=== PATIENT | female | born 2000 | race Caucasian/White ===

== ENCOUNTER 2022-10-28 15:41 | Emergency (ER) | payer OTHER, SELFPAY ==
[2022-10-28 16:29] VITALS: BP 151/86; PULSE 95; RESP 16; TEMP 36.5; O2SAT 100
[2022-10-28 17:07] LABS: Appearance Urine Cloudy (Clear); Bacteria Urine Rare /hpf; Bilirubin Urine Negative (Negative); Blood Urine Negative (Negative); Color Urine Yellow (Yellow); Glucose Urine UA Negative (Negative); Ketones Urine Trace mg/dL (Negative); Leukocyte Esterase Ur Negative LEU/UL (Negative); Nitrate Urine Negative (Negative); Non Pathogenic Casts 0-2; Protein Urine Negative (Negative); RBC Urine 0-2 /hpf (0-2); Specific Grav Ur 1.019 (1.001-1.035); Squamous Epithelial Cell Urine Moderate /hpf (Few); Urobilinogen Urine 0.2 mg/dL (<2.0); WBC Urine 0-5 /hpf; pH Urine 6.5 (5.0-9.0)
[2022-10-28 17:12] LABS: Add Urine Microscopic? YES
--- NOTE | 2022-10-28 19:59 | ED.GENADULT ---
HPI - General Adult General Chief complaint: Abdominal Pain Stated complaint: abd pain Time Seen by Provider: 10/28/22 19:17 History of Present Illness HPI narrative: This is a 22-year-old female presenting ED with a chief complaint of left upper quadrant abdominal pain. It occurs started occurring about 3 weeks ago. It is a burning pain that is nonradiating, 6 out 10 in intensity and comes and goes. She says she has never experienced pain like this before. It is worse after eating. There are no alleviating factors. Patient notes that she has been taking increased Motrin to kind to help with the pain. She also drinks a large amount of coffee and eats a lot of spicy food. Patient denies fever, chills vomiting. She does have chronic constipation. She also has bad heartburn. Related Data Allergies Allergy/AdvReac Type Severity Reaction Status Date / Time No Known Allergies Allergy Verified 10/28/22 20:04 [facility] Past Medical History Medical History Constipation GERD (gastroesophageal reflux disease) Social History Social History Social History: Patient drinks alcohol occasionally, denies tobacco or drug use. Exam Narrative: APPEARANCE: No apparent distress. Head: atraumatic. EYES: EOMI, NOSE: Atraumatic NECK: Trachea midline RESPIRATORY: No increased rate of breathing Clear auscultation bilaterally CARDIOVASCULAR: RRR, ABDOMINAL: Tenderness palpation in the left upper quadrant. No guarding no rebound bowel sounds present. MUSCULOSKELETAl: No obvious deformities NEURO: Alert. Moving 4/4 extremities SKIN:: Warm, dry. Normal color PSYCHIATRIC: Normal affect Course Vital Signs Vital signs: Vital Signs Temperature 97.7 F 10/28/22 16:29 Pulse Rate 95 10/28/22 16:29 Respiratory Rate 16 10/28/22 16:29 Blood Pressure 151/86 H 10/28/22 16:29 Pulse Oximetry 100 10/28/22 16:29 Oxygen Delivery Room Air 10/28/22 16:29 Temperature 97.7 F 10/28/22 16:29 Pulse Rate 95 10/28/22 16:29 Respiratory Rate 16 10/28/22 16:29 Blood Pressure 151/86 H 10/28/22 16:29 Pulse Oximetry 100 10/28/22 16:29 Oxygen Delivery Room Air 10/28/22 16:29 Medical Decision Making MDM Narrative Medical decision making narrative: -Presentation: 22-year-old female presenting with left upper quadrant pain. History of heavy Motrin coffee and spicy food use. -DDX includes but is not limited to: Gastritis/peptic ulcer disease, GERD, UTI/pyelonephritis, pancreatitis -Co-morbidities complicating care: GERD, constipation -Social determinants of health: patient works at [employer], she has part-time student lives with her Betzaida -External Chart Review: none -Hx from independent Sources: mother Shantelle -Discussion of Management/Consultants: none -Independent interpretation of studies: Urine was not indicative infection. Lab work is within normal limits. Dx tests considered but not ordered: CT abdomen pelvis, patient's history and physical are consistent with gastritis. given the patient's young age and classic presentation a CT will be deferred at this time. -Procedures: none -Interventions: Pepcid, Maalox -Shared decision making / Disposition: the results were discussed with the patient and her family. Her presentation is consistent with gastritis. She will be trialed on a 6 week course of Pepcid. She has been given instructions to reduce coffee, Motrin and spicy food intake. She can follow up with her primary care physician 1-2 weeks. -RX Pepcid Vital Signs Vital Signs: Vital Signs Temperature 97.7 F 10/28/22 16:29 Pulse Rate 95 10/28/22 16:29 Respiratory Rate 16 10/28/22 16:29 Blood Pressure 151/86 H 10/28/22 16:29 Pulse Oximetry 100 10/28/22 16:29 Oxygen Delivery Room Air 10/28/22 16:29 Temperature 97.7 F 10/28/22 16:29 P
[2022-10-28] MEDS: MAG HYDROX/AL HYDROX/SIMETH 30 ML UDC PO (20:47)
[2022-10-28] MEDS: Please add drug allergy info to patient profile. 1 EACH XX (20:47)
[2022-10-28] MEDS: FAMOTIDINE 20 MG TABLET PO (20:47)
[2022-10-28 20:48] LABS: Basophils Absolute Auto 0.1 K/mm3 (0.0-0.1); Basophils Percent Auto 0.7 % (0.2-1.2); Eosinophils Percent Auto 0.1 % (0-4.4); Hematocrit 43.2 % (37.0-47.0); Hemoglobin 14.1 g/dL (12.0-15.0); Immature Granulocyte Absolute 0.02 K/mm3 (0.00-0.031); Immature Granulocyte Percent A 0.2 % (0-0.5); Lymphocytes Absolute Auto 1.52 K/mm3 (0.9-3.2); Lymphocytes Percent Auto 15.4 % (18.3-44.2); Mean Corpuscular HGB Conc 32.6 g/dl (32-36); Mean Corpuscular Hemoglobin 28.5 pg (26-34); Mean Corpuscular Volume 87.3 fl (80-100); Mean Platelet Volume 10.3 fl (7.4-10.4); Monocytes Absolute Auto 0.4 K/mm3 (0.1-0.6); Monocytes Percent Auto 4.1 % (2.6-8.5); Neutrophils Absolute Auto 7.9 K/mm3 (1.3-6.7); Neutrophils Percent Auto 79.5 % (45.5-73.1); Platelet Count Result 341 k/mm3 (150-375); Red Blood Count 4.95 M/mm3 (4.2-5.4); Red Cell Distribution Width 12.8 % (11.5-14.5); White Blood Count 9.9 K/mm3 (4.5-10.0)
[2022-10-28 21:00] LABS: Alanine Aminotransferase 37 U/L (6-35); Albumin Level 4.8 g/dL (3.5-5.1); Alkaline Phosphatase 120 U/L (38-126); Anion Gap 6 mmol/L (8-16); Aspartate Amino Transferase 30 U/L (14-36); Bilirubin,Total 0.5 mg/dL (0.2-1.3); Blood Urea Nitrogen 15 mg/dL (7-17); Calcium 9.7 mg/dL (8.4-10.2); Carbon Dioxide 26 mmol/L (22-30); Chloride 102 mmol/L (98-107); Estimated CRCL calculation 137 ml/min; Estimated Glomerular Filt Rate > 60; Glucose 100 mg/dL (65-110); Lipase 124 U/L (23-300); Sodium 134 mmol/L (137-145)
[2022-10-28 21:27] VITALS: BP 146/89; PULSE 78; RESP 18; O2SAT 97
== END 2022-10-28 21:28 | disposition home or self-care (01) ==
PROVIDERS: Emergency Medicine; Emergency Provider Emergency Medicine; PCP Family Medicine
DX: K29.70 Gastritis, unspecified, without bleeding (principal); K21.9 Gastro-esophageal reflux disease without esophagitis
CPT/HCPCS: 36415; 80053; 81001; 81025; 83690; 85025; 96374; 99284; A9270

== ENCOUNTER 2022-12-23 00:56 | Emergency (ER) | payer OTHER, SELFPAY ==
[2022-12-23 01:01] VITALS: BP 139/86; PULSE 90; RESP 18; TEMP 36.6; O2SAT 100
[2022-12-23] MEDS: ONDANSETRON HCL ODT 4 MG TABLET PO (02:35)
[2022-12-23] MEDS: CARBAMIDE PEROXIDE 6.5% OT SOLN 15 ML BTL 5 DROP RIGHT EAR (02:35)
[2022-12-23] MEDS: MECLIZINE HCL 25 MG TABLET PO (02:35)
--- NOTE | 2022-12-23 02:42 | ED.GENADULT ---
HPI - General Adult General Chief complaint: Unspecified <ALETHEA Woods Last Filed: 12/23/22 03:05> Stated complaint: ear wax in ear and caused dizziness <ALETHEA Woods Last Filed: 12/23/22 03:05> Time Seen by Provider: 12/23/22 02:13 <ALETHEA Woods Last Filed: 12/23/22 03:05> History of Present Illness HPI narrative: 22-year-old female here for evaluation of right ear fullness x1 day. Patient states he attempted to remove earwax but she pushed it in further and this caused her to be nauseated and dizzy. <ALETHEA Woods Last Filed: 12/23/22 03:05> Related Data Allergies/adverse reactions: Allergies Allergy/AdvReac Type Severity Reaction Status Date / Time No Known Allergies Allergy Verified 12/23/22 02:47 <Kandice Ventura PA-C - Last Filed: 12/23/22 03:05> Review of Systems Review of Systems: Gen: Denies fevers or chills Eyes: Denies eye pain or visual change ENT: Denies congestion Respiratory: Denies shortness of breath or cough CV: Denies chest pain or palpitations GI: Denies abdominal pain nausea, emesis or diarrhea : denies burning, urgency, frequency or hematuria Musculoskeletal: Denies back pain or muscle pain Neuro: Denies numbness, tingling, weakness or focal weakness Skin: Denies rash Except as documented, all other systems reviewed and negative <ALETHEA Woods Last Filed: 12/23/22 03:05> [facility] Past Medical History Medical History: Medical History Constipation GERD (gastroesophageal reflux disease) <ALETHEA Woods Last Filed: 12/23/22 03:05> Social History Social History: Social History (System 11/01/22 @ 08:03 by Heather Momin) Social History: Patient drinks alcohol occasionally, denies tobacco or drug use. <Kandice Ventura PA-C - Last Filed: 12/23/22 03:05> Exam Narrative: 22-year-old female here for evaluation of dizziness and nausea in the setting of a right cerumen impaction that was irrigated out in the ED. Patient feeling improved after irrigation. Will discharge home. <Kandice Ventura PA-C - Last Filed: 12/23/22 03:05> Course TIME STUDY ANALYST/PA Physician Supervision This is a was performed by both a physician and an APC. I performed all aspects of the MDM as documented w/ the following additions: 22-year-old female presenting with cerumen impaction. Ear wax was removed with improvement symptoms. He components of procedures performed my supervision. All questions answered. Patient in agreement w/ disposition. <Aki Lopez MD - Last Filed: 12/29/22 02:25> Vital Signs Vital signs: Vital Signs Temperature 97.9 F 12/23/22 01:01 Pulse Rate 90 12/23/22 01:01 Respiratory Rate 18 12/23/22 01:01 Blood Pressure 139/86 12/23/22 01:01 Pulse Oximetry 100 12/23/22 01:01 Oxygen Delivery Room Air 12/23/22 01:01 Temperature 97.9 F 12/23/22 01:01 Pulse Rate 90 12/23/22 01:01 Respiratory Rate 18 12/23/22 01:01 Blood Pressure 139/86 12/23/22 01:01 Pulse Oximetry 100 12/23/22 01:01 Oxygen Delivery Room Air 12/23/22 01:01 <Kandice Ventura PA-C - Last Filed: 12/23/22 03:05> Vital Signs Temperature 97.9 F 12/23/22 01:01 Pulse Rate 90 12/23/22 01:01 Respiratory Rate 18 12/23/22 01:01 Blood Pressure 139/86 12/23/22 01:01 Pulse Oximetry 100 12/23/22 01:01 Oxygen Delivery Room Air 12/23/22 01:01 Temperature 97.9 F 12/23/22 01:01 Pulse Rate 90 12/23/22 01:01 Respiratory Rate 18 12/23/22 01:01 Blood Pressure 139/86 12/23/22 01:01 Pulse Oximetry 100 12/23/22 01:01 Oxygen Delivery Room Air 12/23/22 01:01 <Aki Lopez MD - Last Filed: 12/29/22 02:25> Procedures Ear Wax Removal Right Ear: Ear Wax Removal Date: 12/23/22 <ROYCE Woods-
== END 2022-12-23 03:11 | disposition home or self-care (01) ==
PROVIDERS: Emergency Provider Physician Assistant; PCP Family Medicine
DX: H61.21 Impacted cerumen, right ear (principal)
CPT/HCPCS: 69209; 99283; A9270

== ENCOUNTER 2023-11-25 04:08 | Emergency (ER) | payer OTHER, SELFPAY ==
[2023-11-25 04:09] VITALS: BP 144/76; PULSE 83; RESP 18; TEMP 36.3; O2SAT 100
[2023-11-25 05:07] LABS: Basophils Percent Auto 0.3 % (0.2-1.2); Eosinophils Percent Auto 0.1 % (0-4.4); Hematocrit 44.4 % (37.0-47.0); Hemoglobin 14.6 g/dL (12.0-15.0); Immature Granulocyte Absolute 0.07 K/mm3 (0.00-0.031); Immature Granulocyte Percent A 0.5 % (0-0.5); Lymphocytes Absolute Auto 0.62 K/mm3 (0.9-3.2); Lymphocytes Percent Auto 4.7 % (18.3-44.2); Mean Corpuscular HGB Conc 32.9 g/dl (32-36); Mean Corpuscular Volume 85.1 fl (80-100); Mean Platelet Volume 11.2 fl (7.4-10.4); Monocytes Absolute Auto 0.6 K/mm3 (0.1-0.6); Monocytes Percent Auto 4.2 % (2.6-8.5); Neutrophils Absolute Auto 11.9 K/mm3 (1.3-6.7); Neutrophils Percent Auto 90.2 % (45.5-73.1); Platelet Count Result 292 k/mm3 (150-375); Red Blood Count 5.22 M/mm3 (4.2-5.4); Red Cell Distribution Width 12.9 % (11.5-14.5); White Blood Count 13.2 K/mm3 (4.5-10.0)
[2023-11-25 05:11] LABS: Alanine Aminotransferase 22 U/L (6-35); Alkaline Phosphatase 104 U/L (38-126); Anion Gap 9 mmol/L (4-12); Aspartate Amino Transferase 31 U/L (14-36); Blood Urea Nitrogen 15 mg/dL (7-17); Calcium 9.8 mg/dL (8.4-10.2); Carbon Dioxide 24 mmol/L (22-30); Chloride 105 mmol/L (98-107); Estimated CRCL calculation 219 ml/min; Estimated Glomerular Filt Rate > 60; Glucose 110 mg/dL (65-110); Lipase 130 U/L (23-300); Potassium 4.1 mmol/L (3.4-5.0); Sodium 138 mmol/L (137-145)
[2023-11-25] MEDS: LORazepam INJ (*CRX) 2 MG/ML VIAL 0.5 MG IV PUSH (05:12)
[2023-11-25] MEDS: ONDANSETRON INJ 4 MG/2 ML VIAL IV PUSH (05:13)
--- NOTE | 2023-11-25 05:45 | ED.GENADULT ---
HPI - General Adult General Chief complaint: Nausea/Vomiting/Diarrhea Stated complaint: vomiting/chills Time Seen by Provider: 11/25/23 04:48 History of Present Illness HPI narrative: This is a 23-year-old female presenting with vomiting x1 week. Patient states that she has been having trouble sleeping for the last month. Over the last week when she has trouble sleeping she starts to feel her heart racing and then starts to vomit. She has had some chills related to the vomiting but no fevers. Some abdominal discomfort while vomiting but no true pain. No urinary symptoms. Patient does have significant anxiety about her health as her was recently diagnosed with type 2 diabetes she is concerned she may also have diabetes. Related Data Allergies Allergy/AdvReac Type Severity Reaction Status Date / Time No Known Allergies Allergy Verified 12/23/22 02:47 [facility] Past Medical History Medical History Constipation GERD (gastroesophageal reflux disease) Social History Social History (System 11/01/22 @ 08:03 by Heather Momin) Social History: Patient drinks alcohol occasionally, denies tobacco or drug use. Exam Narrative: APPEARANCE: anxious appearing Head: atraumatic. EYES: EOMI, NOSE: Atraumatic NECK: Trachea midline RESPIRATORY: No increased rate of breathing CTAB CARDIOVASCULAR: RRR, ABDOMINAL: Abdomen is soft nontender no guarding or rebound MUSCULOSKELETAl: No obvious deformities NEURO: Alert. Moving 4/4 extremities SKIN:: Warm, dry. Normal color PSYCHIATRIC: Normal affect Course Vital Signs Vital signs: Vital Signs Temperature 97.3 F L 11/25/23 04:09 Pulse Rate 83 11/25/23 04:09 Respiratory Rate 18 11/25/23 04:09 Blood Pressure 144/76 H 11/25/23 04:09 Pulse Oximetry 100 11/25/23 04:09 Oxygen Delivery Room Air 11/25/23 04:09 Temperature 97.3 F L 11/25/23 04:09 Pulse Rate 83 11/25/23 04:09 Respiratory Rate 18 11/25/23 04:09 Blood Pressure 144/76 H 11/25/23 04:09 Pulse Oximetry 100 11/25/23 04:09 Oxygen Delivery Room Air 11/25/23 04:09 Medical Decision Making [facility] Narrative Medical decision making narrative: -Course: 23-year-old female presenting with insomnia and nausea/vomiting. Patient notes a significant increased anxiety over the last month due to health school. Patient given Zofran and Ativan. Workup negative. On re-evaluation the patient is tolerating p.o.. She says she feels much better. Patient encouraged to follow-up with her primary care physician for treatment of her anxiety. She will be given Zofran for nausea. Given return precautions. 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 CMP within normal limits. Urine not indicative infection. -Dx tests considered but not ordered: CT abdomen pelvis-benign abdominal exam -Interventions: Zofran 4mg, Ativan .5mg -Shared decision making / Disposition: discharge -RX Zofran Vital Signs Vital Signs: Vital Signs Temperature 97.3 F L 11/25/23 04:09 Pulse Rate 83 11/25/23 04:09 Respiratory Rate 18 11/25/23 04:09 Blood Pressure 144/76 H 11/25/23 04:09 Pulse Oximetry 100 11/25/23 04:09 Oxygen Delivery Room Air 11/25/23 04:09 Temperature 97.3 F L 11/25/23 04:09 Pulse Rate 83 11/25/23 04:09 Respiratory Rate 18 11/25/23 04:09 Blood Pressure 144/76 H 11/25/23 04:09 Pulse Oximetry 100 11/25/23 04:09 Oxygen Delivery Room Air 11/25/23 04:09 Lab Data 11/25/23 04:52 11/25/23 04:52 Labs: Lab Results 11/25/23 11/25/23
[2023-11-25 05:46] LABS: Appearance Urine Clear (Clear); Bacteria Urine None Seen /hpf; Bilirubin Urine Negative (Negative); Blood Urine Negative (Negative); Color Urine Yellow (Yellow); Glucose Urine UA Negative (Negative); Ketones Urine Trace mg/dL (Negative); Leukocyte Esterase Ur Negative LEU/UL (Negative); Nitrate Urine Negative (Negative); Non Pathogenic Casts 0-2; Protein Urine Trace mg/dL (Negative); RBC Urine 0-2 /hpf (0-2); Specific Grav Ur 1.027 (1.001-1.035); Squamous Epithelial Cell Urine Occasional /hpf (Few); WBC Urine 0-5 /hpf (0-3); pH Urine 8.5 (5.0-9.0)
[2023-11-25 05:47] LABS: Add Urine Microscopic? YES
[2023-11-25 05:57] LABS: Amphetamine Screen Urine Negative (Negative); Barbiturate Screen Urine Negative (Negative); Benzodiazepines Screen Urine Negative (Negative); Cannabinoid Screen Urine Negative (Negative); Cocaine Screen Urine Negative (Negative); Methadone Screen Urine Negative (Negative); Opiate Screen Urine Negative (Negative); Phencyclidine Screen Urine Negative (Negative)
[2023-11-25 06:17] LABS: Influenza A QL RT-PCR Negative (Negative); Influenza B QL RT-PCR Negative (Negative); RSV RNA, RT-PCR Negative (Negative); SARS-CoV-2 RNA PCR Negative (Negative)
[2023-11-25 06:35] VITALS: BP 122/73; PULSE 99; RESP 15; O2SAT 100
== END 2023-11-25 06:38 | disposition home or self-care (01) ==
PROVIDERS: Emergency Provider Emergency Medicine; PCP Family Medicine
DX: R11.2 Nausea with vomiting, unspecified (principal); F41.9 Anxiety disorder, unspecified; K21.9 Gastro-esophageal reflux disease without esophagitis; Z20.822 Contact with and (suspected) exposure to COVID-19
CPT/HCPCS: 36415; 80053; 80307; 81001; 81025; 83690; 85025; 87637; 96374; 96375; 99284; J2060; J2405

== ENCOUNTER 2024-11-03 07:43 | Emergency (ER) | payer BC, SELFPAY ==
--- OUTSIDE RECORDS SUMMARY | 2024-11-03 07:46 | XMS_ITS | Data Portability ---
Author Organization [facility] Pricing Assistant, Main Office Address [address] [place] [address] Care Team Providers Care Process Controller Name Role Phone ROBYN WITT Primary Care Provider Assessment No assessment recorded. Plan of Treatment Reminders Order Date Submit Date Provider Last Modified By Organization Details Last Modified Time Details Appointments None recorded. Lab lipid panel, serum 2023 024 [facility] (Lab), [address] [place], [address], 4 17:26:44 CMP, serum or plasma 2023 024 [facility] (Lab), [address] [place], [address], 4 17:26:44 CBC w/ auto diff 2023 024 [facility] (Lab), [address] [place], [address], 4 11:45:05 glycohemo globin, total, blood 2023 024 [facility] (Lab), [address] [place], [address], 4 14:53:29 TSH, serum or plasma 2023 024 [facility] (Lab), [address] [place], [address], 4 17:26:45 T4, free, serum 2023 024 [facility] (Lab), [address] [place], [address], 4 17:26:44 vitamin D, 25-hydrox y, total, serum 2023 024 [facility] (Lab), [address] [place], [address], 4 17:26:44 Referral endocrino logy referral 2023 024 [email or web address] [facility], [address], [address], [place], [address], 5 07:28:33 obstetric larissa and gynecolog ist referral 2023 024 [email or web address] [place], [address], [place], [address], 5 07:28:32 Procedures None recorded. Surgeries None recorded. Imaging None recorded. Medication Orders Ciprodex 0.3 %-0.1 % ear drops,gavin pension 2023 024 [email or web address] [id number], [address], [place], [place], [id number], 5 09:44:19 Patient TargetsNo targets recorded. Patient Instructions Encounter Date Encounter Id Patient Instructions Last Modified By Organization Details Last Modified Time 02/08/2024 [id number] Follow up in 4 m [facility] Obtain labs Referral to VINYL INSTALLER Referral to Endocrinology [email or web address] Not available 02/08/2024 09:30:26 07/24/2024 [id number] SHE WAS ADVISED TO CONTINUE AUGMENTIN AND METHYLPREDNISOLONE THAT WAS PREVIOUSLY PRESCRIBED. ADDED CIPRODEX TWICE A DAY FOR 7 DAYS FOR ADDITIONAL MANAGEMENT. SHE WILL FOLLOW-UP WITH ME IN 6 WEEKS TO ASSESS THE HEALING PROGRESS OF HER RIGHT TM PERFORATION. AT THAT TIME OF HER NEXT APPOINTMENT WE WILL SCHEDULE FOR AN AUDIOGRAM AND TYMPANOGRAM TO BE COMPLETED. [email or web address] Not available 07/24/2024 16:17:25 Reason for Referral Senior Backup Administrator And Gynecologis t Referral for Long-term current use of hormonal contraceptive Referring Physician: Robyn Witt, Internal Medicine, Encounter Date: 02/08/2024 Endocrinology Referral for Dominguez gilliland Referring Physician: Robyn Witt Internal Medicine, Encounter Date: 02/08/2024 Results Created Date Observation Date Name Description Value Unit Range Abnormal Flag Note LastModifiedBy Organization Detail LastModifiedTime 03/07/20 24 03/07/2024 PPD (ted fied prote in deriv ative ), skin test TB negati ve Not Available [facility] [address], [place], [address], 03/05/2024 09:29:31 03/07/20 24 03/07/2024 PPD (tde fied prote in deriv ative ), skin test TB 0mm Not Available [facility] [address], [place], [address], 03/05/2024 09:29:31 Result Notes None recorded. Problems Name Problem SNOMED Code Status Onset Date Resolution Date Notes Provider Name and Address Organization Details Recorded Time Abnormal testosteron e 452150247 Active 2021 Robyn Witt APRN [address], [address], [place], [address], [employer] 4 07:47:59 Vitamin D deficiency 70425353 Active 2021 Robyn Witt APRN [address], [place], [address], [employer] 4 07:48:23 Obesity 450543804 Active 2021 Robyn Witt APRN [address], [place], [address], [employer] 4 07:48:19 Anxiety 19844953 Active 2019 Robyn Witt APRN [address], [place], [address], [employer] [place] [facility] [employer] 4 07:47:56 Chronic constipatio n 112277227 Active 2022 Robyn Witt APRN [address], [place], [address], [employer] [place] [employer] 4 07:48:06 Mixed anxiety and depressive disorder 185961515 Active 2022 Robyn Witt APRN [address], [address], [place], [address], [employer] 4 07:48:16 Testosteron e level above reference range 889558461 Active 2022 ABEL Soriano [address], [address], [place], [address], [employer] 3 09:37:30 Irregular periods 06912812 Active 2022 Radha Grande MD [address], [address], [place], [address], [employer] 3 09:26:49 Fatigue 85551301 Active 2022 Radha Grande MD [address], [address], [place], [address], [employer] 3 09:27:36 Abdominal bloating 738989021 Active 2022 Radha Grande MD [address], [address], [place], [address], [employer] [place] [employer] 3 09:29:00 Abdominal pain 64503788 Active 2022 Radha Grande MD [address], [address], [place], [address], [employer] [place] [employer] 3 09:32:20 Goiter 2164799 Active 2022 Robyn Witt APRN [address], [place], [address], [facility] [employer] [facility] [employer] [facility] 4 07:48:13 Chronic abdominal pain 430866206 Active 2022 Robyn Witt APRN [address], [place], [address], [facility] [employer] [facility] 4 07:48:03 Headache 56261596 Active 2022 ABEL Soriano [address], [place], [address], [facility] [employer] [facility] [employer] [facility] 3 12:51:21 Acute otitis media 0281344 Active 2023 Robyn Witt APRN [address], [place], [address], [facility] [employer] [facility] [employer] [facility] 4 11:56:46 Perforation of right tympanic membrane 7039738916191 108 Active 2023 ABEL Shirley [address], [place], [address], [facility] [employer] [facility] [employer] [facility] 4 16:16:01 Problem Notes None recorded. Procedures Surgical History Date Name Laterality Status Provider Name and Address Organization Details Recorded Time Myringotomy Tube Placement completed Autumn Delgado RN [facility] [employer] [facility] 07/24/2024 15:39:09 Imaging Results None recorded. Procedure Notes None recorded. Medical Equipment None Reported. Allergies No known drug allergies Medications Name Sig Start Date Stop Date Status Note LastModified by Organization Details LastModified Time tuberculin PPD 5 tub. unit/0.1 mL intradermal injection solution Inject 0.1 mL every day by intraderm al route for 1 day. 07/24 completed Not Available Not Available Not Available cefprozil 500 mg tablet 05/22 completed Not Available Not Available Not Available cetirizine 10 mg tablet TAKE 1 TABLET BY MOUTH EVERY NIGHT active Not Available Not Available No t Available citalopram 10 mg tablet Take 05/15 completed Not Available Not Available Not Available Zithromax Z-Marcello 250 mg tablet TAKE 2 TABLETS (500 MG) BY ORAL ROUTE ONCE DAILY FOR 1 DAY THEN 1 TABLET (250 MG) BY ORAL ROUTE ONCE DAILY FOR 4 DAYS 04/05 completed Not Available Not Available Not Available penicillin V potassium 500 mg tablet 05/15 completed Not Available Not Available Not Available pantoprazol e 20 mg tablet,tim yed release 06/29 completed Not Available Not Available Not Available ofloxacin 0.3 % ear drops USE 10 DROPS IN THE RIGHT EAR EVERY DAY 02/07 completed Not Available Not Available Not Available amoxicillin 875 mg tablet TAKE 1 TABLET BY MOUTH EVERY 12 HOURS FOR 7 DAYS 07/24 completed Not Available Not Available Not Available citalopram 20 mg tablet TAKE 1 TABLET BY MOUTH DAILY 02/07 completed Not Available Not Available Not Available oseltamivir 75 mg capsule 05/22 completed Not Available Not Available Not Available buspirone 10 mg tablet Take 1 tablet twice a day by oral route for 30 days. 03/10 completed Not Available Not Available Not Available ergocalcife rol (vitamin D2) 1,250 mcg (50,000 unit) capsule Take 1 capsule every week by oral route in the morning for 90 days. 02/07 completed Not Available Not Available Not Available methylpredn isolone 4 mg tablets in a dose pack FOLLOW PACKAGE DIRECTION S 09/04 completed Not Available Not Available Not Available hydroxyzine HCl 10 mg tablet TAKE 1 TABLET BY MOUTH THREE TIMES DAILY NEEDED active Not Available Not Available No t Available ondansetron 4 mg disintegrat ing tablet DISSOLVE 1 TABLET ON THE TONGUE EVERY 8 HOURS NEEDED FOR NAUSEA OR VOMITING 02/07 completed Not Available Not Available Not Available fluticasone propionate 50 mcg/actuati on nasal spray,suspe nsion SPRAY 1 SPRAY INTO EACH NOSTRIL EVERY 12 HOURS NEEDED FOR CONGESTIO N active Not Available Not Available No t Available medroxyprog esterone 150 mg/mL intramuscul ar suspension ADM 1 ML IM 1 TIME FOR 1 DOSE 05/15 completed Not Available Not Available Not Available loratadine 10 mg tablet 11/09 completed Not Available Not Available Not Available amoxicillin 875 mg-potassiu m clavulanate 125 mg tablet TAKE 1 TABLET BY MOUTH TWICE DAILY 09/04 completed Not Available Not Available Not Available ciprofloxac in 0.3 %-dexametha sone 0.1 % ear drops,suspe nsion INSTILL 4 DROPS INTO RIGHT EAR(S) BY OTIC ROUTE 2 TIMES PER DAY FOR 7 DAYS 09/04 completed Not Available Not Available Not Available Wellbutrin XL 150 mg 24 hr tablet, extended release Take 1 tablet every day by oral route 2023 active Not Available Not Available Not Avai lable Wellbutrin XL 300 mg 24 hr tablet, extended release Take 1 tablet every day by oral route for 90 days. 04/05 completed Not Available Not Available Not Available nitrofurant oin monohydrate /macrocryst als 100 mg capsule TAKE 1 CAPSULE BY MOUTH EVERY 12 HOURS FOR 5 DAYS 03/10 completed Not Available Not Available Not Available Nexplanon 68 mg subdermal implant Inject by subcutane ous route. 07/24 completed Not Available Not Available Not Available Linzess 290 mcg capsule Take 1 capsule every day by oral route. 02/07 completed Not Available Not Available Not Available Plenvu 140 gram-9 gram-5.2 gram powder packs USE DIRECTED WITH FIRST DOSE AT 6 PM NIGHT BEFORE PROCEDURE AND SECOND DOSE 6 HOURS PRIOR TO PROCEDURE 02/07 completed Not Available Not Available Not Available Vitals Date Recorded Body height Provider Name an d Address Organization Details Last Updated DateTime 03/08/2023 162.56 cm Laurie Winslow LPN [place] [employer] 03/08/2023 11:16:09 Date Recorded Body height Body mass index (BMI) Body weight Body temperature Heart rate Oxygen saturation Oxygen saturation in Arterial blood by Pulse oximetry Systolic blood pressure Diastolic blood pressure Provider Name and Address Organization Details Last Updated DateTime 162.56 cm 44.3 kg/m2 637766. 83 g 97.4 [degF] 84 /min 99 % 99 % 114 mm[Hg] 74 mm[Hg] Camilla Dennis MA [employer] 09:03:46 Date Recorded Body height Body mass index (BMI) Body weight Body temperature Provider Name and Address Organization Details Last Updated DateTime 07/24/2024 162.56 cm 43.9 kg/m2 270952.65 g 97.7 [degF] Autumn Delgado RN [place] [facility] Pricing Assistant 07/24/2024 15:41:05 Date Recorded Body height Body mass index (BMI) Body weight Body temperature Provider Name and Address Organization Details Last Updated DateTime 09/05/2024 162.56 cm 43.1 kg/m2 344308.68 g 97.8 [degF] Autumn Delgado RN [place] [facility] Pricing Assistant 09/05/2024 09:26:56 Social History Question Answer Notes LastModified by Organization Details LastModified Time Tobacco Smoking Status Never Smoker Not Available [employer] 10/13/2022 21:29:56 What Is Your Level Of Alcohol Consumption? Occasional [id number] Information not available 10/13/2022 What Is Your Level Of Caffeine Consumption? Moderate Diet Pepsi 3-4 Times A Day [id number].[id number] Information not available 10/13/2022 In The 14 Days Before Symptom Onset, Have You Had Close Contact With A Laboratory-confi rmed COVID-19 While That Case Was Ill? No [id number] Information not available 10/13/2022 In The 14 Days Before Symptom Onset, Have You Had Close Contact With A Person Who Is Under Investigation For COVID-19 While That Person Was Ill? Yes [id number] Information not available 10/13/2022 Are You Currently Employed? Yes Information not available 02/08/2024 What Type Of Diet Are You Following? REGULAR Information not available 02/08/2024 Do You Or Have You Ever Used E-cigarettes Or Vape? 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 No Information not available 02/08/2024 Do You Use Insect Repellent Routinely? Yes Information not available 02/08/2024 Where Do You Live? SingleLevelHouse Information not available 02/08/2024 What Was The Date Of Your Most Recent Tobacco Screening? 02/08/2024 Information not available 02/08/2024 How Many Children Do You Have? -1 Information not available 02/08/2024 Have You Ever Been Counseled For Unhealthy Alcohol Use? No [id number] Information not available 10/13/2022 Do You Have Any Pets? Yes Information not available 02/08/2024 What Is Your Relationship Status? Information not available 02/08/2024 Do You Use Your Seat Belt Or Car Seat Routinely? Yes Information not available 02/08/2024 Do You Have Smoke And Carbon Monoxide Detectors In Your Home? Yes Information not available 02/08/2024 Are You Passively Exposed To Smoke? No Information not available 02/08/2024 Are There Any Smokers In Your House? No Information not available 02/08/2024 Do You Feel Stressed (tense, Restless, Nervous, Or Anxious, Or Unable To Sleep At Night)? [id number] Information not available 02/08/2024 Do You Use Any Illicit Or Recreational Drugs? No MIGRATION.0301 [id number] Information not available 10/13/2022 Do You Use Sunscreen Routinely? Yes Information not available 02/08/2024 Has Tobacco Cessation Counseling Been Provided? No MIGRATION.[id number] [id number] Information not available 10/13/2022 Have You Recently Traveled Abroad? No MIGRATION.0301 [id number] Information not available 10/13/2022 Do You Have Any Dietary Restrictions? No MIGRATION.0301 [id number] Information not available 10/13/2022 Do You Or Have You Ever Used Any Other Forms Of Tobacco Or Nicotine? Yes MIGRATION.0301 [id number] Information not available 10/13/2022 Sex: Unknown Functional Status Question Answer Note LastModified by Organizat ion Details LastModified Time What is your exercise level? Occasional [id number] Information not available 10/13/2022 Mental Status None recorded. Family History Relationship Description Onset Age of this Age Resolved Age Notes LastModified by Organization Details LastModified Time Father No current problems or disability [email or web address] Not available 10/14 09:15:11 Mother No current problems or disability hypert ension , skin cancer [email or web address] Not available 11/09/2022 09:15:02 Paternal Grandmother No current problems or disability pancre atis cancer [email or web address] Not available 11/09/2022 09:15:50 Notes:NO ENT Medical History Condition Response HEADACHES/MIGRAINES Y OBESITY Y GERD/NAUSEA Y LUNG DISEASE/DISORDER Y DEPRESSION (INCLUDING POST ) Y HAVE YOU BEEN HOSPITALIZED OR SEEN IN [facility] IN THE PAST YEAR ? Y Gynecological History Statement/Question Response How many live births 0 Date of Last Pap Current Control Method Implant Date of LMP Obstetrics History GPAL:G 0 P 0 0 0 0 Type Value Multiple Births 0 Full Term 0 Induced 0 Spontaneous 0 Premature 0 Living 0 Ectopics 0 Total 0 Immunizations Vaccine Type Date Status Note Provider Nam e and Address Organization Details Recorded Time Tdap 1 completed Not Available [facility] 10/13/2022 21:32:21 Influenza, split virus, quadrivalent, preservative 0 completed Not Available [facility] 10/13/2022 21:32:21 HPV9 8 completed Not Available [facility] 10/13/2022 21:32:21 Hep A, ped/adol, 2 dose 7 completed Not Available [facility] 10/13/2022 21:32:21 meningococcal ACWY, unspecified formulation 7 completed Not Available [facility] 10/13/2022 21:32:21 meningococcal ACWY, unspecified formulation 2 completed Not Available [facility] 10/13/2022 21:32:21 Tdap 2 completed Not Available [facility] 10/13/2022 21:32:22 varicella 2 completed Not Available [facility] 10/13/2022 21:32:22 DTaP 6 completed Not Available [facility] 10/13/2022 21:32:22 MMR 6 completed Not Available [facility] 10/13/2022 21:32:22 TST-PPD intradermal 6 completed Not Available [facility] 10/13/2022 21:32:22 IPV 6 completed Not Available [facility] 10/13/2022 21:32:22 DTaP 2 completed Not Available [facility] 10/13/2022 21:32:23 Hib, unspecified formulation 2 completed Not Available [facility] 10/13/2022 21:32:23 varicella 2 completed Not Available [facility] 10/13/2022 21:32:23 IPV 2 completed Not Available [facility] 10/13/2022 21:32:23 MMR 2 completed Not Available [facility] 10/13/2022 21:32:23 Pneumococcal Conjugate, unspecified formulation 2 completed Not Available [facility] 10/13/2022 21:32:23 TST-PPD intradermal 2 completed Not Available [facility] 10/13/2022 21:32:23 Hep B, adolescent or pediatric 1 completed Not Available [facility] 10/13/2022 21:32:24 DTaP 1 completed Not Available [facility] 10/13/2022 21:32:24 Hib, unspecified formulation 1 completed Not Available [facility] 10/13/2022 21:32:24 Pneumococcal Conjugate, unspecified formulation 1 completed Not Available [facility] 10/13/2022 21:32:24 DTaP 1 completed Not Available [facility] 10/13/2022 21:32:24 Hib, unspecified formulation 1 completed Not Available [facility] 10/13/2022 21:32:24 Pneumococcal Conjugate, unspecified formulation 1 completed Not Available [facility] 10/13/2022 21:32:25 IPV 1 completed Not Available [facility] 10/13/2022 21:32:25 DTaP 1 completed Not Available [facility] 10/13/2022 21:32:25 Hib, unspecified formulation 1 completed Not Available [facility] 10/13/2022 21:32:25 Pneumococcal Conjugate, unspecified formulation 1 completed Not Available [facility] 10/13/2022 21:32:25 IPV 1 completed Not Available [facility] 10/13/2022 21:32:25 Hep B, adolescent or pediatric 1 completed Not Available [facility] 10/13/2022 21:32:25 Hep A, adult 1 completed Not Available [facility] 10/13/2022 21:32:26 Hep B, adult 1 completed Not Available [facility] 10/13/2022 21:32:26 Influenza, split virus, quadrivalent, PF 0 completed Not Available [facility] 10/13/2022 21:32:26 Influenza, split virus, quadrivalent, PF 3 completed Robyn Witt, [employer] [address] [facility] [address], [place], [address], [facility] [employer] [facility] 02/08/2024 09:12:04 Past Encounters Encounter ID Performer Location Encounter Start Date Encounter Closed Date Diagnosis/Indication Diagnosis SNOMED-CT Code Diagnosis ICD10 Code Diagnosis Note [id number] [facility] [place] [address] 03/10/2022 00:00:00 03/10/2022 10:18:50 [id number] [facility] [place] [address] 06/29/2022 00:00:00 06/29/2022 09:57:58 [id number] ABEL Soriano [facility] Primary Care [facility] [address] [facility] [address] [address] [place] [address] 11/09/2022 09:02:55 11/09/2022 09:48:24 Body mass index 40+ - severely obese 846210957 Z68.41 Advised eat 3 meals daily with 1-2 healthy snacks, eliminate caloric drinks, no grazing btw meals, reduce packaged foods, portion control, modificati on of cooking style, low fat/low sugar items, 30 minutes of exercise at least 3x/week, reduce emotional/ stress eating, increase fruits/veg etables, take 15-20 minutes to eat. Chronic constipation 236 349567 K59.09 ChronicPat ient presents with constipati on. Recommend increasing oral fluids with non-caffei nated, non-alcoho lic beverages. Increase daily dietary fiber. May drink prune juice or pear juice to initiate bowel regularity and then decrease as needed to maintain a once daily or every other day bowel habit. Tylenol or Motrin may be used as needed for cramping. High fiber diet with whole grains, fruits and veggies. Fiber supplement with Metamucil or Citracel. Increase water, fluid intake-Rec ommend at least 6-8 8oz glasses day. Avoid straining. May take miralax BID. Follow up as needed, or sooner if new symptoms develop. 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 Denies any SI/HI at this time. Pt to stop medication and be seen if s/e develop. Pt to call with update in 2 weeks.RTO 4 weeks for f/u on medication Testostero ne level above reference range 291732884 E28.1 Keep scheduled appt with endocrinol hazel next month (11/16/22) [id number] Radha Grande MD [facility] [place] [address] [place] [address] 11/16/2022 08:44:16 11/16/2022 10:20:17 Irregular periods 49637007 N92.6 Send for full hormone panel as she has mildly elevated testostero ne - need repeat fasting glucose and insulin to screen for hyperinsul inemia. send for progestero ne to screen for ovulatory function. 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 She has nexplenon implant since 2019. Fatigue 02096077 R53.83 Will send for thyroid antibodies to screen for autoimmune thyroid disease in addition to CBC, CMP, ferritin and B12/folate to screen for other potential secondary causes of fatigue. Vitamin D deficiency 347 45040 E55.9 Vit D markedly low- recommende d she start on vitamin D 50 once weekly-goa l levels up to 50 ng/mL to optimize bone and immune health. Abdominal bloating 34134 9008 R14.0 Send for elastase / food allergy and fecal fat to screen for EPI or malabsorpt ion. Abdominal pain 20872824 R10.9 refer to gastroente rology as patient having more frequent / recurrent lower quadrant abdominal pain-she feels she is having more gastric ulcers - she has never had an EGD or imaging other than through emergency room. Goiter 9757814 E04.9 Will send for baseline thyroid ultrasound as she does have a palpable thyroid and repeat thyroid function panel to assess function. Spent up to 45 minutes preparing to see the patient (eg, review of tests), obtaining and/or reviewing separately obtained history, performing a medically appropriat e examinatio n and evaluation , counseling and educating the patient, ordering medication s, tests, along with documentin g clinical informatio n in the electronic health record, independen tly interpreti ng results and communicat ing results to the patient. RTC in 3-4 months. Patient was provided a handwritte n lab order which contains our fax number. If she chooses to go outside of the [facility] system to obtain labwork she was advised to provide our fax number and my informatio n to the lab she will be obtaining labwork from in order to have her labs properly forwarded over for me to review so there is no loss of follow up due to use of outside network. She was also advised to contact our clinic informing us that she has completed her labwork so we are aware we will need to reach out to the appropriat e laboratory to request her results be forwarded to us so I might have the ability to review and make further medical decision making in her case. She voiced understand ing. Thank you for this consultati on. [id number] ABEL Soriano [facility] [address] [place] [address] 02/01/2023 08:48:46 02/01/2023 11:31:59 Chronic constipation [id number] K59.09 ChronicPat ient presents with constipati on. Recommend increasing oral fluids with non-caffei nated, non-alcoho lic beverages. Increase daily dietary fiber. May drink prune juice or pear juice to initiate bowel regularity and then decrease as needed to maintain a once daily or every other day bowel habit. Tylenol or Motrin may be used as needed for cramping. High fiber diet with whole grains, fruits and veggies. Fiber supplement with Metamucil or Citracel. Increase water, fluid intake-Rec ommend at least 6-8 8oz glasses day. Avoid straining. May take miralax BID. Follow up as needed, or sooner if new symptoms develop.Yadi fink 290mcg daily samples given todayPt to keep scheduled appt on Tuesday for endoscopy/ colonoscop y. 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 Denies any SI/HI at this time. Pt to stop medication and be seen if s/e develop.Ci talopram 20mg dailyHydro xyzine 10mg TID PRN Testostero ne level above reference range [id number] E28.1 ChronicRev iewed endocrinol ogy note from Dr. Grande (11/16/22): Send for full hormone panel as she has mildly elevated testostero ne - need repeat fasting glucose and insulin to screen for hyperinsul inemia. send for progestero ne to screen for ovulatory function. 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 She has nexplenon implant since 2019. Adult [facility] th examination [id number] Z13.29 Z13.220 Z13.89 Z13.1 Z00.01 Adult Health Exam--Labs ordered by endocrinbecky oliva.--Mamm ogram at 40yo--[place] n screening at 45yo--Bone Density at 65yo if indicated. --PAP/WWE- recommende d. Pt to schedule.- -Tdap recommende d q 10 years-up to date.--Flu recommende d yearly.--C OVID-19 recommende d-complete d.--Encour aged yearly dental, vision, hearing screenings Tuberculos is screening [id number] Z11.1 Needs 2-zisd7bf on 02/01/23, return for reading on 02/04Second step must be at least 7 days after, but not more than 21 days, after the first. [id number] ABEL Soriano [facility] Karolyn joe [address] [facility] [address] [place] [address] 03/08/2023 10:45:32 03/08/2023 14:55:04 [id number] Cindy Henley MD [facility] Karolyn jeo [address] [facility] [address] [place] [address] 03/15/2023 15:34:20 03/15/2023 16:45:52 [id number] Robyn Witt APRN [facility] Vianey joe [address] [facility] [place] [address] 02/08/2024 08:54:06 02/08/2024 09:34:31 Obesity [id number] E66.9 Vitamin D deficiency 347 90449 E55.9 Goiter 8538408 E04.9 Long-term current use of hormonal contraceptive [id number] 88145 Z79.3 [id number] ABEL Shirley [facility] [place] [address] [place] [address] 07/24/2024 15:30:18 07/24/2024 16:17:53 Perforation of right tympanic membrane [id number] H72.91 [id number] ABEL Shirley [facility] [place] [address] [place] [address] 09/05/2024 09:21:13 09/05/2024 10:07:41 Perforation of right tympanic membrane [id number] H72.91 Complete healing of the right tympanic membrane present. Follow-up as needed. Health Concerns Section Related Observation LastModified by Organization Detai ls LastModified Time None Recorded Concern Status LastModified by Organization Details LastModified Time None Recorded Advance Directives Directive None Recorded Payers Encounter Date Sequence Insurance Name Policy Number Policy Myles Covered Member ID Myles Member ID Guarantor Name 03/08/2023 1 [facility] [id number] Betzaida Ortega [id number] Cherry Ortega 03/15/2023 1 [facility] [id number] Betzaida Ortega [id number] Cherry Ortega 02/08/2024 1 [employer] [id number] Betzaida Ortega [id number] Cherry Ortega 07/24/2024 1 [place] [id number] Betzaida Ortega [id number] Cherry Ortega 09/05/2024 1 [facility] [id number] Betzaida Ortega [id number] Cherry Ortega Notes Date Note Type Note Provider Name and Address Organization Details Recorded Time 02/08/2024 text/html Cherry presents today to establish care. She states that she is having issues with weight gain. She states that she is active daily and is eating within her calorie deficit. She has not had recent labs. 02/01/23: 1. Pt states she saw endocrinology. Reports they are concerned about her thyroid being enlarged. Pt states she has orders for labs, but hasn't been able to get them done d/t cost and still paying off her last round of labs.2. 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 Pt states she is concerned about getting her colonoscopy and endoscopy : 1. Pt in office to establish care. Was previously seeing Ana Yeung. Pt states she is working on her prerequisites and is supposed to start nursing school in the fall. States she is really struggling with her anxiety. Reports she was previously on citalopram, but stopped a couple of years ago b/c she was doing better.2. Pt states that she was having left-sided pain about a week ago. States she went to UC and was told that it was constipation. States sx got worse and she went to UC and was told that she also had gastritis. Pt states she occasionally takes Miralax, but doesn't feel like it works. Robyn Witt, [employer] [address] [facility], [place], [address], [facility] 02/08/2024 09:35:45 07/24/2024 text/html this patient has a past medical history significant for vitamin-D deficiency, anxiety, depression, otitis media, and chronic constipation. She presents to the office with a complaint of bilateral ear eardrum perforations onset 06/23/2024. She states that she was on a flight when she noticed significant otalgia to her left ear , sustaining a left tympanic membrane rupture. She states that her right ear soon followed with a rupture. She was seen by urgent care after this had occurred and prescribed medication for management. Her left tympanic membrane has fully healed. She still complains of right otalgia muffled hearing and tinnitus. She was seen in urgent care 3 days ago and was placed on Augmentin and methylprednisolone. She was told that approximately 3 years ago that she had Eustachian tube dysfunction secondary to COVID. She reports frequent ear infections. She does note that she is interested in discussing tube placement after full resolution of her tympanic membrane healing Due to the chronic nature of her Eustachian tube dysfunction. ABEL Shirley [address], [facility] [address], [place], [address], [employer] [facility] 07/24/2024 16:17:29 09/05/2024 text/html This patient presents to the office for a 6 week follow-up to reassessed a previous right tympanic membrane perforation. She reports that all her symptoms have resolved. Denies any hearing changes. ABEL Shirley [address], [place], [address], [place] 09/05/2024 10:07:18 OBGyn Episode No OBEpisode recorded.
[2024-11-03 07:57] VITALS: BP 142/75; PULSE 98; RESP 18; O2SAT 99
--- NOTE | 2024-11-03 08:31 | PC.NURSE ---
DK Branch, from vascular access called for IV. This RN and DK Bennett, both attempted.
--- NOTE | 2024-11-03 08:33 | ED_ITS ---
HPI - General Adult General Chief complaint: Abdominal Pain Stated complaint: abdominal cramping-pcp told to come to ed Time Seen by Provider: 11/03/24 07:48 History of Present Illness HPI narrative: [age] old female with history diabetes and potentially PCOS presents emergency department for evaluation for abdominal cramping. Patient did dose recently start metformin and spironolactone. Patient states she did have a greasy cheeseburger late last night and then began having what she described as upper abdominal pain and cramping. Denies any associated nausea vomiting or diarrhea. Patient states she is still having abdominal cramping. Related Data Allergies Allergy/AdvReac Type Severity Reaction Status Date / Time No Known Allergies Allergy Verified 11/03/24 07:44 Review of Systems 2 Review of Systems: All systems reviewed & are unremarkable except as noted in HPI and below PMFSH Past Medical History Medical History Constipation GERD (gastroesophageal reflux disease) Family History Family History Grandparent Hypertension Grandparent Depression Cancer Anxiety Social History Social History (Updated 09/26/24 @ 11:14 by Nunu Patrick MA) Social History: Patient drinks alcohol occasionally, denies tobacco or drug use. Smoking status: Never smoker Alcohol intake: former Substance use type: does not use Do You Feel Safe in your Home?: Yes Lack of Transportation: No Lack of Food: Never True Current Housing: I Have Housing Concerned About Future Housing: No Difficulty Paying Gas/Electric Bills: No Difficulty Paying for Meds: No Currently Unemployed: No Education: High School Diploma/GED Difficulty w/ Childcare or Family Care: No Living arrangements: with family Additional occupation/education comments: Employed PT Gender identity (if verbalized by the patient): Female Agree to blood products: Yes Exam 2 Narrative: APPEARANCE: Well appearing, no pain, no distress, well-nourished. HEAD: normocephalic, atraumatic. EYES: PERRLA/EOMI, conjunctivae clear. NOSE: Normal no drainage EARS:TMS clear with good light reflex. THROAT: Pharynx clear, no exudate. NECK: Supple. No adenopathy, no masses. RESPIRATORY: Airway patent, respirations nonlabored. Clear to auscultation bilaterally, no rales, rhonchi, wheezing. CARDIOVASCULAR: Regular rate and rhythm without murmurs rubs or gallops. ABDOMINAL: Upper quadrant tenderness to palpation. No right upper quadrant and no right lower quadrant tenderness to palpation MUSCULOSKELETAL: Moves all extremities. Strength/ROM intact, No edema, No calf tenderness. NEURO: Alert. Cranial nerves II through XII intact. Grossly intact SKIN: Warm, dry. Normal Color Course Vital Signs Vital signs: Vital Signs Pulse Rate 98 11/03/24 07:57 Respiratory Rate 18 11/03/24 07:57 Blood Pressure 142/75 H 11/03/24 07:57 Pulse Oximetry 99 11/03/24 07:57 Temperature 97.9 F 11/03/24 11:27 Pulse Rate 80 11/03/24 11:27 Respiratory Rate 18 11/03/24 11:27 Blood Pressure 126/78 11/03/24 11:27 Pulse Oximetry 100 11/03/24 11:27 Medical Decision Making MDM Narrative Medical decision making narrative: [age] old female presents emergency department for evaluation for left upper quadrant abdominal pain. Patient did feel improved medications including the GI cocktail. Patient is currently afebrile with no leukocytosis and a stable hemoglobin of 13.7. No significant abnormalities the CMP with a normal T bili AST alk-phos and lipase. No acute abnormalities on the UA. Patient's story is consistent with a gastritis. Patient will be started on omeprazole. Patient was having some nausea so she will also be started on Zofran for home. Differential Diagnosis Differential Diagnosis: Colitis, diverticulitis, gastritis, pancreatitis, esophagitis Vital Signs Vital Signs: Vital Signs Pulse Rate 98 11/03/24 07:57 Respiratory Rate 18 11/03/24 07:57 Blood Pressure 142/75 H 11/03/24 07:57 Pulse Oximetry 99 11/03/24 07:57 Temperature 97.9 F 11/03/24 11:27 Pulse Rate 80 11/03/24 11:27 Respiratory Rate 18 11/03/24 11:27 Blood Pressure 126/78 11/03/24 11:27 Pulse Oximetry 100 11/03/24 11:27 Lab Data Lab results reviewed: Yes I reviewed the patient's lab results. 11/03/24 08:23 11/03/24 08:23 Labs: Lab Results 11/03/24 11/03/24 11/03/24 Range/Units 08:23 08:52 09:02 WBC 6.9 (4.5-10.0) K/mm3 RBC 4.72 (4.2-5.4) M/mm3 Hgb 13.7 (12.0-15.0) g/dL Hct 41.5 (37.0-47.0) % MCV 87.9 (80-100) fl MCH 29.0 (26-34) pg MCHC 33.0 (32-36) g/dl RDW 12.8 (11.5-14.5) % Plt Count 267 (150-375) k/mm3 MPV 11.2 H (7.4-10.4) fl Immature Gran % (Auto) 0.1 (0-0.5) % Neut % (Auto) 65.1 (45.5-73.1) % Lymph % (Auto) 26.1 (18.3-44.2) % [place] % (Auto) 7.1 (2.6-8.5) % Eos % (Auto) 1.0 (0-4.4) % Baso % (Auto) 0.6 (0.2-1.2) % Lymph # (Auto) 1.80 (0.9-3.2) K/mm3 [place] # (Auto) 0.5 (0.1-0.6) K/mm3 Eos # (Auto) 0.1 (0-0.3) K/mm3 Baso # (Auto) 0.0 (0.0-0.1) K/mm3 Abs Immat Gran (auto) 0.01 (0.00-0.031) K/mm3 Absolute Neuts (auto) 4.5 (1.3-6.7) K/mm3 Absolute Nucleated RBC 0.000 (0.0-0.012) K/mm3 Nucleated RBC % 0.0 (0.0-0.2) % PT 12.8 (11.1-14.7) Seconds INR 0.9 APTT 24.3 (22.3-36.8) Seconds Sodium 139 (137-145) mmol/L Potassium 4.7 (3.4-5.0) mmol/L Chloride 105 (98-107) mmol/L Carbon Dioxide 25 (22-30) mmol/L Anion Gap 9 (4-12) mmol/L BUN 19 H (7-17) mg/dL Creatinine 0.81 (0.7-1.0) mg/dL Estim Creat Clear Calc 115 ml/min Estimated GFR > 60 (59 - ) Glucose 99 (65-110) mg/dL Lactic Acid Cancelled Calcium 9.6 (8.4-10.2) mg/dL Total Bilirubin 0.4 (0.2-1.3) mg/dL AST 23 (14-36) U/L ALT 18 (6-35) U/L Alkaline Phosphatase 87 (38-126) U/L Total Protein 8.0 (6.3-8.2) g/dL Albumin 4.5 (3.5-5.1) g/dL Lipase 222 (23-300) U/L Urine Color Yellow (Yellow) Urine Appearance Clear (Clear) Urine pH 8.5 (5.0-9.0) Ur Specific [place] 1.021 (1.001-1.035) Urine Protein Negative (Negative) mg/dL Urine Glucose (UA) Negative (Negative) mg/dL Urine Ketones Negative (Negative) mg/dL Ur Blood (Man) Negative (Negative) Urine Nitrate Negative (Negative) Urine Bilirubin Negative (Negative) Urine Urobilinogen 1.0 (<2.0) mg/dL Leukocyte Esterase Rfl Negative (Negative) NITIN/UL POC Urine HCG, Qual Negative (Negative) Discharge Plan Discharge Clinical Impression: Abdominal pain, left upper quadrant, Gastritis Patient Disposition: Home, Self-Care Condition: Stable Instructions: Antibiotic Form, Diet for Stomach Ulcers and Gastritis (ED), Abdominal Pain (ED) Additional Instructions: Zofran as needed for nausea control. Omeprazole as directed to help with gastritis. Follow a bland diet. Have close follow-up with her primary care physician and he will also need follow-up with GI. If you have any worsening symptoms then please call or return to the emergency department. Patient Language: Swedish Prescriptions: New omeprazole 20 mg capsule,delayed release(DR/EC) 20 mg PO DAILY 14 Days Qty: 14 0RF ondansetron 4 mg tablet,disintegrating 4 mg PO Q8H PRN (Reason: nausea and vomiting) Qty: 14 0RF No Action trazodone 50 mg tablet 50 mg PO QHS PRN (Reason: insomnia) Qty: 30 1RF Zepbound 2.5 mg/0.5 mL pen injector 2.5 mg subcut WEEKLY Qty: 2 0RF Rx Instructions: for 4 weeks fluoxetine 10 mg capsule 10 mg PO QPM Qty: 90 1RF spironolactone 50 mg tablet 50 mg PO DAILY Qty: 90 3RF metformin [Glucophage XR] 500 mg tablet extended release 24 hr 500 mg PO DAILY Qty: 90 0RF Follow-up/Referrals: Jorge Mcgarry MD [Physician] - Alie Yeung APRN [Primary Care Provider] -
--- NOTE | 2024-11-03 08:34 | PC.NURSE ---
patient difficult stick, attempt x2 without success.
[2024-11-03 08:36] LABS: Basophils Percent Auto 0.6 % (0.2-1.2); Eosinophils Absolute Auto 0.1 K/mm3 (0-0.3); Hematocrit 41.5 % (37.0-47.0); Hemoglobin 13.7 g/dL (12.0-15.0); Immature Granulocyte Absolute 0.01 K/mm3 (0.00-0.031); Immature Granulocyte Percent A 0.1 % (0-0.5); Lymphocytes Percent Auto 26.1 % (18.3-44.2); Mean Corpuscular Volume 87.9 fl (80-100); Mean Platelet Volume 11.2 fl (7.4-10.4); Monocytes Absolute Auto 0.5 K/mm3 (0.1-0.6); Monocytes Percent Auto 7.1 % (2.6-8.5); Neutrophils Absolute Auto 4.5 K/mm3 (1.3-6.7); Neutrophils Percent Auto 65.1 % (45.5-73.1); Platelet Count Result 267 k/mm3 (150-375); Red Blood Count 4.72 M/mm3 (4.2-5.4); Red Cell Distribution Width 12.8 % (11.5-14.5); White Blood Count 6.9 K/mm3 (4.5-10.0)
[2024-11-03 08:46] LABS: INR 0.9; Partial Thromboplastin Time 24.3 Seconds (22.3-36.8); Prothrombin Time 12.8 Seconds (11.1-14.7)
[2024-11-03] MEDS: SODIUM CHLORIDE 0.9% IV 1,000 ML 999 ML IV CONT (08:50)
[2024-11-03] MEDS: PANTOPRAZOLE SODIUM IV 40 MG VIAL IV PUSH (08:51)
[2024-11-03] MEDS: FAMOTIDINE 20 MG/2 ML VIAL IV PUSH (08:51)
[2024-11-03 08:57] LABS: Alanine Aminotransferase 18 U/L (6-35); Albumin Level 4.5 g/dL (3.5-5.1); Alkaline Phosphatase 87 U/L (38-126); Anion Gap 9 mmol/L (4-12); Aspartate Amino Transferase 23 U/L (14-36); Bilirubin,Total 0.4 mg/dL (0.2-1.3); Blood Urea Nitrogen 19 mg/dL (7-17); Calcium 9.6 mg/dL (8.4-10.2); Carbon Dioxide 25 mmol/L (22-30); Chloride 105 mmol/L (98-107); Estimated CRCL calculation 115 ml/min; Estimated Glomerular Filt Rate > 60; Glucose 99 mg/dL (65-110); Lipase 222 U/L (23-300); Potassium 4.7 mmol/L (3.4-5.0); Sodium 139 mmol/L (137-145)
[2024-11-03 09:03] LABS: Add Urine Microscopic? NO; Appearance Urine Clear (Clear); Bilirubin Urine Negative (Negative); Blood Urine Negative (Negative); Color Urine Yellow (Yellow); Glucose Urine UA Negative (Negative); Ketones Urine Negative (Negative); Leukocyte Esterase Ur Negative LEU/UL (Negative); Nitrate Urine Negative (Negative); Protein Urine Negative (Negative); Specific Grav Ur 1.021 (1.001-1.035); pH Urine 8.5 (5.0-9.0)
[2024-11-03 09:04] LABS: BEDSIDEPREGUCG Negative (Negative)
[2024-11-03] MEDS: BELLADONNA ALK/PHENOB ELIX 10 ML, MAG HYDROX/ALUMINUM HYD/SIMETH 30 ML, LIDOCAINE 2% VI... PO (09:43)
[2024-11-03 11:27] VITALS: BP 126/78; PULSE 80; RESP 18; TEMP 36.6; O2SAT 100
== END 2024-11-03 11:28 | disposition home or self-care (01) ==
PROVIDERS: Emergency Provider Emergency Medicine; PCP Nurse Practitioner Adult Health
DX: K29.70 Gastritis, unspecified, without bleeding (principal); E11.9 Type 2 diabetes mellitus without complications; K21.9 Gastro-esophageal reflux disease without esophagitis; Z79.84 Long term (current) use of oral hypoglycemic drugs; Z79.899 Other long term (current) drug therapy; Z79.85 Long-term (current) use of injectable non-insulin antidiabetic drugs
CPT/HCPCS: 36415; 80053; 81003; 81025; 83690; 85025; 85610; 85730; 96361; 96374; 96375; 99284; A9270; J2470; J7030

== ENCOUNTER 2024-12-30 10:36 | Emergency (ER) | payer BC, SELFPAY ==
--- NOTE | ~2024-12-30 | XR_ITS ---
Right Forearm AP and lateral views of the right forearm were performed. Clinical History: Trauma Findings: There is acute intra-articular fracture of the radial head. No other fracture or dislocatio n seen. Soft tissues are unremarkable. Impression: Acute minimally displaced intra-articular fracture of the radial head. Reviewed, dictated and finalized at location . Impression: Acute minimally displaced intra-articular fracture of the radial head.
--- NOTE | ~2024-12-30 | XR_ITS ---
Right wrist Technique: PA, oblique, lateral, and ulnar deviation views were obtained. Clinical History: Trauma Findings: No acute fracture or dislocation is seen. Osseous alignment is anatomic. Joint spaces are p reserved. Soft tissues are unremarkable. Impression: Unremarkable right wrist radiographs. Reviewed, dictated and finalized at location . Impression: Unremarkable right wrist radiographs.
[2024-12-30 10:37] VITALS: BP 146/89; PULSE 79; RESP 16; TEMP 36.8; O2SAT 100
--- OUTSIDE RECORDS SUMMARY | 2024-12-30 10:39 | XMS_ITS | Data Portability ---
Author Organization [facility] [place], Main Office Address [address] [place] [address] Care Team Providers Care Supervisor Slate Splitting Name Role Phone ROBYN WITT Primary Care Provider Assessment No assessment recorded. Plan of Treatment Reminders Order Date Submit Date Provider Last Modified By Organization Details Last Modified Time Details Appointments None recorded. Lab lipid panel, serum 2023 024 [facility] (Lab), [address] [place], [address], 4 17:26:44 CMP, serum or plasma 2023 024 [facility] (Lab), [address] [place], [address], 4 17:26:44 CBC w/ auto diff 2023 024 [facility] (Lab), [address] [place], [address], 4 11:45:05 glycohemo globin, total, blood 2023 024 [facility] (Lab), [address] [place], [address], 4 14:53:29 TSH, serum or plasma 2023 024 [facility] (Lab), [address] [place], [address], 4 17:26:45 T4, free, serum 2023 024 [facility] (Lab), [address] [place], [address], 4 17:26:44 vitamin D, 25-hydrox y, total, serum 2023 024 [facility] (Lab), [address] [place], [address], 4 17:26:44 Referral endocrino logy referral 2023 024 [email or web address] [facility], [address], [address], [place], [address], 5 07:28:33 obstetric larissa and gynecolog ist referral 2023 024 shahrzad [facility], [address], [place], [address], 5 07:28:32 Procedures None recorded. Surgeries None recorded. Imaging None recorded. Medication Orders Ciprodex 0.3 %-0.1 % ear drops,gavin pension 2023 [email or web address] [id number], [address] [facility], [place], [place], [id number], 5 09:44:19 Patient TargetsNo targets recorded. Patient Instructions Encounter Date Encounter Id Patient Instructions Last Modified By Organization Details Last Modified Time 02/08/2024 [id number] Follow up in [facility] Obtain labs Referral to CANE WEIGHER Referral to Endocrinology [email or web address] Not available 02/08/2024 09:30:26 07/24/2024 [id number] SHE WAS ADVISED TO CONTINUE AUGMENTIN AND METHYLPREDNISOLONE THAT WAS PREVIOUSLY PRESCRIBED. ADDED CIPRODEX TWICE A DAY FOR 7 DAYS FOR ADDITIONAL MANAGEMENT. SHE WILL FOLLOW-UP WITH ME IN 6 WEEKS TO ASSESS THE HEALING PROGRESS OF HER RIGHT TM PERFORATION. AT THAT TIME OF HER NEXT APPOINTMENT WE WILL SCHEDULE FOR AN AUDIOGRAM AND TYMPANOGRAM TO BE COMPLETED. [email or web address] Not available 07/24/2024 16:17:25 Reason for Referral Fish Hatchery Supervisor And Gynecologis t Referral for Long-term current [...] skin test TB negati ve Not Available [facility] [address], [place], [address], 03/05/2024 09:29:31 03/07/20 24 03/07/2024 PPD (ted fied prote in deriv ative ), skin test TB 0mm Not Available [facility] [address], [place], [address], 03/05/2024 09:29:31 Result Notes None recorded. Problems Name Problem SNOMED Code Status Onset Date Resolution Date Notes Provider Name and Address Organization Details Recorded Time Abnormal testosteron e 813239342 Active 2021 Robyn Witt APRN [address], [address], [place], [address], [employer] 4 07:47:59 Vitamin D deficiency 38333581 Active 2021 Robyn Witt APRN [address], [address], [place], [address], [employer] 4 07:48:23 Obesity 258486786 Active 2021 Robyn Witt APRN [address], [place], [address], [employer] 4 07:48:19 Anxiety 16026204 Active 2019 Robyn Witt APRN [address], [place], [address], [employer] [place] 4 07:47:56 Chronic constipatio n 431526635 Active 2022 Robyn Witt APRN [address], [place], [address], [employer] [place] 4 07:48:06 Mixed anxiety and depressive disorder 899359422 Active 2022 Robyn Witt APRN [address], [place], [address], [employer] [place] 4 07:48:16 Testosteron e level above reference range 095129131 Active 2022 ABEL Soriano [address], [address], [place], [address], [employer] [place] 3 09:37:30 Irregular periods 01159355 Active 2022 Radha Grande MD [address], [place], [address], [employer] 3 09:26:49 Fatigue 83584704 Active 2022 Radha Grande MD [address], [place], [address], [employer] [place] 3 09:27:36 Abdominal bloating 941186001 Active 2022 Radha Grande MD [address], [place], [address], [employer] [place] 3 09:29:00 Abdominal pain 37756957 Active 2022 Radha Grande MD [address], [place], [address], [email or web address] 3 09:32:20 Goiter 2888573 Active 2022 Robyn Witt APRN [address], [place], [address], [employer] [facility] [employer] [facility] 4 07:48:13 Chronic abdominal pain 348153581 Active 2022 Robyn Witt APRN [address], [place], [address], [employer] [facility] [employer] [facility] 4 07:48:03 Headache 99320514 Active 2022 ABEL Soriano [address], [place], [address], [employer] [facility] 3 12:51:21 Acute otitis media 0267670 Active 2023 Robyn Witt APRN [address], [place], [address], [employer] [facility] [place] 4 11:56:46 Perforation of right tympanic membrane 4965399726838 108 Active 2023 ABEL Shirley [address], [place], [address], [employer] [facility] [place] 4 16:16:01 Problem Notes None recorded. Procedures Surgical History Date Name Laterality Status Provider Name and Address Organization Details Recorded Time Myringotomy Tube Placement completed Autumn Delgado RN [facility] 07/24/2024 15:39:09 Imaging Results None recorded. Procedure [...] DateTime 03/08/2023 162.56 cm Laurie Winslow LPN ND [employer] [facility] [place] 03/08/2023 11:16:09 Date Recorded Body height Body mass index (BMI) Body weight Body temperature Heart rate Oxygen saturation Oxygen saturation in Arterial blood by Pulse oximetry Systolic blood pressure Diastolic blood pressure Provider Name and Address Organization Details Last Updated DateTime 162.56 cm 44.3 kg/m2 542184. 83 g 97.4 [degF] 84 /min 99 % 99 % 114 mm[Hg] 74 mm[Hg] Camilla Dennis MA ND [employer] [facility] [place] 09:03:46 Date Recorded Body height Body mass index (BMI) Body weight Body temperature Provider Name and Address Organization Details Last Updated DateTime 07/24/2024 162.56 cm 43.9 kg/m2 757688.65 g 97.7 [degF] Autumn Delgado RN [facility] [place] 07/24/2024 15:41:05 Date Recorded Body height Body mass index (BMI) Body weight Body temperature Provider Name and Address Organization Details Last Updated DateTime 09/05/2024 162.56 cm 43.1 kg/m2 355782.68 g 97.8 [degF] Autumn Delgado RN [facility] [place] 09/05/2024 09:26:56 Social History Question Answer Notes LastModified by Organizat ion Details LastModified Time Tobacco Smoking Status Never Smoker Not Available [facility] 10/13/2022 21:29:56 What Is Your Level Of Caffeine Consumption? Moderate Diet Pepsi 3-4 Times A Day [id number] Information not available 10/13/2022 In The 14 Days Before Symptom Onset, Have You Had Close Contact With A Laboratory-confi rmed COVID-19 While That Case Was Ill? No [id number] Information not available 10/13/2022 In The 14 Days Before Symptom Onset, Have You Had Close Contact With A Person Who Is Under Investigation For COVID-19 While That Person Was Ill? Yes [id number].[id number] Information not available 10/13/2022 What Type Of Diet Are You Following? REGULAR Information not available 02/08/2024 Have There Been [...] Been Counseled For Unhealthy Alcohol Use? No MIGRATION.[id number] Information not available 10/13/2022 Do You Have [...] Information not available 02/08/2024 Do You Use Sunscreen Routinely? Yes Information not available 02/08/2024 Has Tobacco Cessation Counseling Been Provided? No MIGRATION.09198 [id number] Information not available 10/13/2022 Have You Recently Traveled Abroad? No MIGRATION.85890 99107 Information not available 10/13/2022 Do You Have Any Dietary Restrictions? No MIGRATION.60736 67404 Information not available 10/13/2022 Sex: Unknown Functional Status Question Answer Note LastModified by Organizat ion Details LastModified Time Do you use any illicit or recreational drugs? No MIGRATION.[id number] Information not available 10/13/2022 Do you or have you ever used any other forms of tobacco or nicotine? Yes MIGRATION.51734 31670 Information not available 10/13/2022 What is your level of alcohol consumption? Occasional MIGRATION.43477 94143 Information not available 10/13/2022 Are you currently employed? 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 Former user of electronic cigarettes MIGRATION.82145 63299 Information not available 10/13/2022 What is your exercise level? Occasional MIGRATION.55065 73746 Information not available 10/13/2022 Mental Status Question Answer Note LastModified by Organization D etails LastModified Time Do you feel stressed (tense, restless, nervous, or anxious, or unable to sleep at night)? [id number] Information not available 02/08/2024 Family History Relationship Description Onset Age of this Age Resolved Age Notes LastModified by Organization Details LastModified Time Father No current problems or disability [email or web address] Not available 10/14 09:15:11 Mother No current problems or disability hypert ension , skin cancer [email or web address] Not available 11/09/2022 09:15:02 Paternal Grandmother No current problems or disability pancre atis cancer [email or web address] Not available 11/09/2022 09:15:50 Notes:NO ENT Medical History Condition Response HEADACHES/MIGRAINES Y OBESITY Y GERD/NAUSEA Y LUNG DISEASE/DISORDER Y DEPRESSION (INCLUDING POST ) Y HAVE YOU BEEN HOSPITALIZED OR SEEN IN [facility] ER IN THE PAST YEAR ? Y [...] Recorded Time Tdap 1 completed Not Available [facility] 10/13/2022 21:32:21 Influenza, split virus, quadrivalent, preservative 0 completed Not Available [facility] 10/13/2022 21:32:21 HPV9 8 completed Not Available [facility] 10/13/2022 21:32:21 Hep A, ped/adol, 2 dose 7 completed Not Available [facility] 10/13/2022 21:32:21 meningococcal ACWY, unspecified formulation 7 completed Not Available [facility] 10/13/2022 21:32:21 meningococcal ACWY, unspecified formulation 2 completed Not Available [facility] 10/13/2022 21:32:21 Tdap 2 completed Not Available [facility] 10/13/2022 21:32:22 varicella 2 completed Not Available [facility] 10/13/2022 21:32:22 DTaP 6 completed Not Available [facility] 10/13/2022 21:32:22 MMR 6 completed Not Available [facility] 10/13/2022 21:32:22 TST-PPD intradermal 6 completed Not Available [facility] 10/13/2022 21:32:22 IPV 6 completed Not Available [facility] 10/13/2022 21:32:22 DTaP 2 completed Not Available [facility] 10/13/2022 21:32:23 Hib, unspecified formulation 2 completed Not Available [facility] 10/13/2022 21:32:23 varicella 2 completed Not Available [facility] 10/13/2022 21:32:23 IPV 2 completed Not Available [facility] 10/13/2022 21:32:23 MMR 2 completed Not Available [facility] 10/13/2022 21:32:23 Pneumococcal Conjugate, unspecified formulation 2 completed Not Available [facility] 10/13/2022 21:32:23 TST-PPD intradermal 2 completed Not Available [facility] 10/13/2022 21:32:23 Hep B, adolescent or pediatric 1 completed Not Available [facility] 10/13/2022 21:32:24 DTaP 1 completed Not Available [facility] 10/13/2022 21:32:24 Hib, unspecified formulation 1 completed Not Available [facility] 10/13/2022 21:32:24 Pneumococcal Conjugate, unspecified formulation 1 completed Not Available [facility] 10/13/2022 21:32:24 DTaP 1 completed Not Available [facility] 10/13/2022 21:32:24 Hib, unspecified formulation 1 completed Not Available [facility] 10/13/2022 21:32:24 Pneumococcal Conjugate, unspecified formulation 1 completed Not Available [facility] 10/13/2022 21:32:25 IPV 1 completed Not Available [facility] 10/13/2022 21:32:25 DTaP 1 completed Not Available [facility] 10/13/2022 21:32:25 Hib, unspecified formulation 1 completed Not Available [facility] 10/13/2022 21:32:25 Pneumococcal Conjugate, unspecified formulation 1 completed Not Available [facility] 10/13/2022 21:32:25 IPV 1 completed Not Available [facility] 10/13/2022 21:32:25 Hep B, adolescent or pediatric 1 completed Not Available [facility] 10/13/2022 21:32:25 Hep A, adult 1 completed Not Available [facility] 10/13/2022 21:32:26 Hep B, adult 1 completed Not Available [facility] 10/13/2022 21:32:26 Influenza, split virus, quadrivalent, PF 0 completed Not Available [facility] 10/13/2022 21:32:26 Influenza, split virus, quadrivalent, PF 3 completed Robyn Witt, LASER ENGRAVER [address] [facility], [facility] [address], [place], [address], [facility] [employer] [facility] 02/08/2024 09:12:04 Past Encounters Encounter ID Performer Location Encounter Start Date Encounter Closed Date Diagnosis/Indication Diagnosis SNOMED-CT Code Diagnosis ICD10 Code Diagnosis Note [id number] [facility] [place] [address] 03/10/2022 00:00:00 03/10/2022 10:18:50 [id number] [facility] [place] [address] [place] [address] 06/29/2022 00:00:00 06/29/2022 09:57:58 [id number] ABEL Soriano [facility] [address] [facility] [address] [place] [address] 11/09/2022 09:02:55 11/09/2022 09:48:24 Body mass index 40+ - severely obese 259823981 Z68.41 Advised eat 3 meals daily with 1-2 healthy snacks, eliminate caloric drinks, no grazing btw meals, reduce packaged foods, portion control, modificati on of cooking style, low fat/low sugar items, 30 minutes of exercise at least 3x/week, reduce emotional/ stress eating, increase fruits/veg etables, take 15-20 minutes to eat. Chronic constipation 236 858753 K59.09 ChronicPat ient presents with constipati on. [...] develop. 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 Denies any SI/HI at this time. Pt to stop medication and be seen if s/e develop. Pt to call with update in 2 weeks.RTO 4 weeks for f/u on medication Testostero ne level above reference range 112604283 E28.1 Keep scheduled appt with endocrinol ogy next month (11/16/22) [id number] Radha Grande MD [facility] [address] [place] [address] 11/16/2022 08:44:16 11/16/2022 10:20:17 Irregular periods 24390288 N92.6 Send for full hormone panel as she has mildly elevated testostero ne - need repeat fasting glucose and insulin to screen for hyperinsul inemia. send for progestero ne to screen for ovulatory function. 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 She has nexplenon implant since 2019. Fatigue 46659411 R53.83 Will send for thyroid antibodies to screen for autoimmune thyroid disease in addition to CBC, CMP, ferritin and B12/folate to screen for other potential secondary causes of fatigue. Vitamin D deficiency 347 78643 E55.9 Vit D markedly low- recommende d she start on vitamin D 50 once weekly-goa l levels up to 50 ng/mL to optimize bone and immune health. Abdominal bloating 68054 9008 R14.0 Send for elastase / food allergy and fecal fat to screen for EPI or malabsorpt ion. Abdominal pain 44949033 R10.9 refer to gastroente rology as patient having more frequent / recurrent lower quadrant abdominal pain-she feels she is having more gastric ulcers - she has never had an EGD or imaging other than through emergency room. Goiter 7702958 E04.9 Will send for baseline thyroid ultrasound [...] informatio n in the electronic health record, heavenen juan luis interpreti ng results and communicat ing results to the patient. RTC in 3-4 months. Patient was provided a handwritte n lab order which contains our fax number. If she chooses to go outside of the [facility] to obtain labwork she was [...] ing. Thank you for this consultati on. [id number] ABEL Soriano [facility] [address] [place] [address] 02/01/2023 08:48:46 02/01/2023 11:31:59 Chronic constipation 815131162 K59.09 ChronicPat ient presents with constipati on. [...] needed, or sooner if new symptoms develop.Yadi nzess 290mcg daily samples given todayPt to keep scheduled appt on Tuesday for endoscopy/ colonoscop y. 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 Denies any SI/HI at this time. Pt to stop medication and be seen if s/e develop.Ci talopram 20mg dailyHydro xyzine 10mg TID PRN Testostero ne level above reference range 956647104 E28.1 ChronicRev iewed endocrinol ogy note from [...] She has nexplenon implant since 2019. Adult [facility] th examination 653241983 Z13.29 Z13.220 Z13.89 Z13.1 Z00.01 Adult Health Exam--Labs ordered by endocrinol ogy.--Mamm ogram at 40yo--[place] n screening at 45yo--Bone Density at 65yo if indicated. --PAP/WWE- recommende d. Pt to schedule.- -Tdap recommende d q 10 years-up to date.--Flu recommende d yearly.--C OVID-19 recommende d-complete d.--Encour aged yearly dental, vision, hearing screenings Tuberculos is screening 411331631 Z11.1 Needs 2-[id number] on 02/01/23, return for reading on 02/04Second step must be at least 7 days after, but not more than 21 days, after the first. [id number] ABEL Soriano [facility] Karolyn joe [address] [place] [address] 03/08/2023 10:45:32 03/08/2023 14:55:04 [id number] Cindy Henley MD [facility] Primary Care Karolyn franklinelizabeth [address] [place] [address] 03/15/2023 15:34:20 03/15/2023 16:45:52 [id number] Winter schofield MD [facility] Internal Med Hanglazaro stephanie [id number] [facility] [place] [address] 02/08/2024 08:54:06 02/08/2024 09:34:31 Obesity 824886888 E66.9 Vitamin D deficiency 347 54305 E55.9 [id number]||2024-12-30 12:00:00|XR_ITS|PAMB|Imaging|[id number]|"Right elbow Technique: AP, oblique, and lateral views were obtained. Clinical History: Pain Findings: There is an acute mildly displaced intra-articular fracture of the radial head. Associated small elbow joint effusion. No dislocation. Impression: Acute mildly displaced intra-articular fracture radial head. Elbow joint effusion. Reviewed, dictated and finalized at [facility]. Impression: Acute mildly displaced intra-articular fracture radial head. Elbow joint effusion. "
[2024-12-30] MEDS: HYDROcodone/acetaminophen (*CRX) 5-325 MG TABLET 1 TAB PO (11:24)
--- NOTE | 2024-12-30 12:36 | ED.UPPEXIN ---
HPI - Extremity Injury (Upper) General Chief Complaint: Extremity Injury, Upper Stated Complaint: R ARM INJURY Time Seen by Provider: 12/30/24 10:43 History of Present Illness HPI narrative: Patient is a 24-year-old female who presents ER with right elbow pain and wrist pain. Fell driving her arm into the carpet. Has pain with supination pronation. No numbness or tingling. She did not strike her head or lose consciousness. Related Data Allergies Allergy/AdvReac Type Severity Reaction Status Date / Time No Known Allergies Allergy Verified 12/30/24 10:43 Review of Systems Constitutional: Constitutional: Reports no additional constitutional complaints Musculoskeletal: Musculoskeletal: Reports no additional musculoskeletal complaints Integumentary/Breasts: Skin/Breast: Reports system reviewed and no additional complaints, except as docu Neurologic: Reports system reviewed and no additional complaints, except as documented PMFSH Past Medical History Medical History Constipation GERD (gastroesophageal reflux disease) Family History Family History Grandparent Hypertension Grandparent Depression Cancer Anxiety Social History Social History (Updated 09/26/24 @ 11:14 by Nunu Patrick MA) Social History: Patient drinks alcohol occasionally, denies tobacco or drug use. Smoking status: Never smoker Alcohol intake: former Substance use type: does not use Do You Feel Safe in your Home?: Yes Lack of Transportation: No Lack of Food: Never True Current Housing: I Have Housing Concerned About Future Housing: No Difficulty Paying Gas/Electric Bills: No Difficulty Paying for Meds: No Currently Unemployed: No Education: High School Diploma/GED Difficulty w/ Childcare or Family Care: No Living arrangements: with family Additional occupation/education comments: Employed PT Gender identity (if verbalized by the patient): Female Agree to blood products: Yes Exam Narrative: GENERAL: Well-appearing, well-nourished, and in no acute distress. HEAD: Normocephalic, atraumatic. ENT: Mucous membranes moist. EXTREMITIES: Right upper extremity with tenderness the bilateral epicondyles as well as the right wrist. Normal range of motion at the wrist but cannot perform range of motion at the elbow without pain. Neurovascular intact. SKIN: Warm, dry, no rash. NEURO: Alert and oriented x3. PSYCH: Normal mood and affect. Course Course Emergency Course: [place] for pain. Informed of results. Placed in a sling for comfort. Discharge home with pain control and ortho referral. Vital Signs Vital signs: Vital Signs Temperature 98.2 F 12/30/24 10:37 Pulse Rate 79 12/30/24 10:37 Respiratory Rate 16 12/30/24 10:37 Blood Pressure 146/89 H 12/30/24 10:37 Pulse Oximetry 100 12/30/24 10:37 Oxygen Delivery Room Air 12/30/24 10:37 Temperature 98.2 F 12/30/24 10:37 Pulse Rate 79 12/30/24 10:37 Respiratory Rate 16 12/30/24 10:37 Blood Pressure 146/89 H 12/30/24 10:37 Pulse Oximetry 100 12/30/24 10:37 Oxygen Delivery Room Air 12/30/24 10:37 MDM - Extremity Injury (Upper) Imaging Data Radiologist's impression: ITS Impressions Elbow X-Ray 12/30/24 12:00 Impression: Acute mildly displaced intra-articular fracture radial head. Elbow joint effusion. Forearm X-Ray 12/30/24 12:00 Impression: Acute minimally displaced intra-articular fracture of the radial head. Wrist X-Ray 12/30/24 12:01 Impression: Unremarkable right wrist radiographs. Discharge Plan Discharge Clinical Impression: Fracture of radial head, closed Patient Disposition: Home Condition: Stable Instructions: Elbow Fracture (ED) Additional Instructions: You have a radial head fracture. Follow-up with orthopedic surgery for further evaluation. Perform [id number] as tolerated. Return the ER if you suffered a new injury. Patient Language: Nam[place]ian Prescriptions: New hydrocodone-acetaminophen 5-325 mg tablet 1 tablet PO Q6H PRN (Reason: pain) Qty: 14 0RF No Action trazodone 50 mg tablet 50 mg PO QHS PRN (Reason: insomnia) Qty: 30 1RF Zepbound 2.5 mg/0.5 mL pen injector 2.5 mg subcut WEEKLY Qty: 2 0RF Rx Instructions: for 4 weeks fluoxetine 10 mg capsule 10 mg PO QPM Qty: 90 1RF omeprazole 20 mg capsule,delayed release(DR/EC) 20 mg PO DAILY 14 Days Qty: 14 0RF ondansetron 4 mg tablet,disintegrating 4 mg PO Q8H PRN (Reason: nausea and vomiting) Qty: 14 0RF spironolactone 50 mg tablet 50 mg PO DAILY Qty: 90 3RF metformin [Glucophage XR] 500 mg tablet extended release 24 hr 500 mg PO DAILY Qty: 90 0RF Follow-up/Referrals: Neel Hayes MD [Physician] - 1 Week Alie Yeung APRN [Primary Care Provider] -
== END 2024-12-30 12:59 | disposition home or self-care (01) ==
PROVIDERS: Emergency Provider Emergency Medicine; PCP Nurse Practitioner Adult Health
DX: S52.121A Displaced fracture of head of right radius, initial encounter for closed fracture (principal); K21.9 Gastro-esophageal reflux disease without esophagitis; Z79.85 Long-term (current) use of injectable non-insulin antidiabetic drugs; Z79.899 Other long term (current) drug therapy; Z79.84 Long term (current) use of oral hypoglycemic drugs; W19.XXXA Unspecified fall, initial encounter
CPT/HCPCS: 73070; 73090; 73110; 99284; A4565; A9270

== ENCOUNTER 2025-01-08 08:48 | Outpatient (CLI) | payer BC, SELFPAY ==
--- NOTE | ~2025-01-08 | CT_ITS ---
Noncontrast CT scan of the right elbow CLINICAL HISTORY: Pain TECHNIQUE: Axial noncontrast imaging of the right elbow were performed. Sagittal and coronal reformat andrew images were constructed. Dose reduction technique was used on this scan by utilizing automated ex posure control and iterative reconstruction technique. The dose-length product (DLP) was 87.46 mGy-cm . Findings: There is an oblique, intra-articular, minimally displaced fracture of the radial head, best seen on sagittal images (series 601 images 23-28). No other fracture or dislocation seen. Joint spac es are preserved at the elbow. There is an associated small to moderate elbow joint effusion. Visualized musculature unremarkable. Subcutaneous soft tissues are unremarkable. IMPRESSION: Acute, oblique, intra-articular, minimally displaced fracture of the radial head, as detailed above. Associated [id number] elbow joint effusion. Reviewed, dictated and finalized at [facility]. IMPRESSION: Acute, oblique, intra-articular, minimally displaced fracture of the radial hea d, as detailed above. Associated [id number] elbow joint effusion.
== END 2025-01-08 08:49 | disposition home or self-care (01) ==
PROVIDERS: PCP Orthopaedic Surgery; Visit Provider Orthopaedic Surgery
DX: M25.421 Effusion, right elbow (principal)
CPT/HCPCS: 73200

== ENCOUNTER 2025-06-18 08:35 | Outpatient (CLI) | payer BC, SELFPAY ==
--- OUTSIDE RECORDS SUMMARY | 2025-06-18 09:03 | XMS_ITS | Clinical Summary ---
Author Organization [facility] Building [facility] Address [address] [place] [address] Care Team Providers Care Lacing String Cutter Name Role Phone Alie Yeung GIN Primary Care Provider [phone] Allergies No known active allergies Medications buPROPion XL (Wellbutrin XL) 150 mg 24 hr tablet Take 1 tablet every day by oral route 04/05/2024 Active busPIRone (BUSPAR) 10 mg tablet Take 1 tablet (10 mg total) by mouth 2 (two) times a day 01/29/2025 Active FLUoxetine (PROzac) 20 mg capsule Take 1 capsule (20 mg total) by mouth daily 01/29/2025 Active HYDROcodone-kristopher taminophen (NORCO) 5-325 mg per tablet Take by mouth every 6 (six) hours as needed 12/30/2024 Active metFORMIN XR (GLUCOPHAGE XR) 500 mg 24 hr tablet Take 1 tablet (500 mg total) by mouth daily 01/29/2025 Active traZODone (DESYREL) 50 mg tablet 02/12/2025 Active cetirizine (ZyrTEC) 10 mg tablet Take by mouth nightly Active Active Problems Problem Noted Date Diagnosed Date Perforation of right tympanic membrane Acute otitis media 03/31/2024 Headache 04/14/2023 Abdominal bloating 11/16/2022 Chronic abdominal pain 11/16/2022 Fatigue 11/16/2022 Goiter 11/16/2022 Irregular periods 11/16/2022 Chronic constipation 11/09/2022 Elevated testosterone level in female 11/09/2022 Mixed anxiety and depressive disorder 11/09/2022 Abnormality of testosterone 07/04/2022 Vitamin D deficiency 07/04/2022 Obesity 03/10/2022 Anxiety 05/15/2020 Social History Tobacco Use Types Packs/Day Years Used Date Smoking Tobacco: Never Assessed Comments Unknown Sex and Gender Information Value Date Recorded Sex Assigned at Not on file Legal Sex Female 11:45 AM CDT Gender Identity Not on file Sexual Orientation Not on file Last Filed Vital Signs Vital Sign Reading Time Taken Comments Blood Pressure 138/92 02/20/2025 2:18 PM CDT Pulse 101 02/20/2025 2:18 PM CDT Temperature 37.1 C (98.7 F) 02/20/2025 2:18 PM CDT Respiratory Rate 22 02/20/2025 2:18 PM CDT Oxygen Saturation 98% 02/20/2025 2:18 PM CDT Inhaled Oxygen Concentration - - Weight - - Height 162.6 cm (5' 4) 02/20/2025 2:18 PM CDT Body Mass Index - - Plan of Treatment Health Maintenance Due Date Last Done Comments Cervical Cancer Screening 2000 Depression Screening 2000 Hepatitis C Screening 2000 HPV Vaccines (1 - 3-dose series) 2015 Regular Well Visit/Exam 18-64 2018 Influenza Vaccine (#1) 2025 4, 05/25/2023, 05/15/2020 DTaP/Tdap/Td Vaccine (8 - Td or Tdap) 08/20/2030 08/20/2020, 02/15/2012, 04/05/2006, Additional history exists Pneumococcal vaccine <65 Completed 002, 04/04/2001, 02/02/2001, Additional history exists Varicella Vaccines Completed 02/15/2012, 01/04/2002 Hepatitis B Screening Completed 08/25/2020 , 07/07/2001, 2000 Insurance [facility] Care Teams Lacing String Cutter Relationship Specialty Start Date End Date Alie Yeung NP [address] [place] [id number] PCP - General Nurse Practitioner 02/20/25
--- OUTSIDE RECORDS SUMMARY | 2025-06-18 09:03 | XMS_ITS | Data Portability ---
Author Organization [place] [facility], Main Office Address [address] [place] [address] Care Team Providers Care Spinning Mule Tender Name Role Phone MIRYAMCLIVEEE Primary Care Provider [phone] Assessment No assessment recorded. Plan of Treatment Reminders Order Date Submit Date Provider Last Modified By Organization Details Last Modified Time Details Appointments None recorded. Lab lipid panel, serum 2023 024 [facility] (Lab), [address] [place], [address], 4 17:26:44 CMP, serum or plasma 2023 024 [facility] (Lab), [address] [place], [address], 4 17:26:44 CBC w/ auto diff 2023 024 [facility] (Lab), [address] [place], [address], 4 11:45:05 glycohemo globin, total, blood 2023 024 [facility] (Lab), [address] [place], [address], 4 14:53:29 TSH, serum or plasma 2023 024 [facility] (Lab), [address] [place], [address], 4 17:26:45 T4, free, serum 2023 024 [facility] (Lab), [address] [place], [address], 4 17:26:44 vitamin D, 25-hydrox y, total, serum 2023 024 [facility] (Lab), [address] [place], [address], 4 17:26:44 Referral endocrino logy referral 2023 024 [email or web address] [facility], [address], [address], [place], [address], 5 07:28:33 obstetric larissa and gynecolog ist referral 2023 024 [email or web address] [facility], [address], [place], [address], 5 07:28:32 Procedures None recorded. Surgeries None recorded. Imaging None recorded. Medication Orders Ciprodex 0.3 %-0.1 % ear drops,gavin pension 2023 024 [email or web address] [id number], [address], [place], [place], [id number], 5 09:44:19 Patient TargetsNo targets recorded. Patient Instructions Encounter Date Encounter Id Patient Instructions Last Modified By Organization Details Last Modified Time 02/08/2024 [id number] Follow up in 4 m [facility] Obtain labs Referral to JUVENILE OFFICER Referral to Endocrinology [email or web address] Not available 02/08/2024 09:30:26 07/24/2024 [id number] SHE WAS ADVISED TO CONTINUE AUGMENTIN AND METHYLPREDNISOLONE THAT WAS PREVIOUSLY PRESCRIBED. ADDED CIPRODEX TWICE A DAY FOR 7 DAYS FOR ADDITIONAL MANAGEMENT. SHE WILL FOLLOW-UP WITH ME IN 6 WEEKS TO ASSESS THE HEALING PROGRESS OF HER RIGHT TM PERFORATION. AT THAT TIME OF HER NEXT APPOINTMENT WE WILL SCHEDULE FOR AN AUDIOGRAM AND TYMPANOGRAM TO BE COMPLETED. [email or web address] Not available 07/24/2024 16:17:25 Reason for Referral Religious Studies Professor And Gynecologis t Referral for Long-term current use of hormonal contraceptive Referring Physician: Robyn Ordonez, Internal Medicine, Encounter Date: 02/08/2024 Endocrinology Referral for Dominguez gilliland Referring Physician: Robyn Ordonez Internal Medicine, Encounter Date: 02/08/2024 Results Created Date Observation Date Name Description Value Unit Range Abnormal Flag Note LastModifiedBy Organization Detail LastModifiedTime 03/07/20 24 03/07/2024 PPD (ted fied prote in deriv ative ), skin test TB negati ve Not Available [facility] [address], [place], [address], 03/05/2024 09:29:31 03/07/20 24 03/07/2024 PPD (ted fied prote in deriv ative ), skin test TB 0mm Not Available [facility] [address], [place], [address], 03/05/2024 09:29:31 Result Notes None recorded. Problems Name Problem SNOMED Code Status Onset Date Resolution Date Notes Provider Name and Address Organization Details Recorded Time Anxiety 08128437 Active 2019 Robyn Ordonez APRN [address], [address], [place], [address], [facility] 4 07:47:56 Obesity 306283437 Active 2021 Robyn Ordonez APRN [address], [place], [address], [facility] 4 07:48:19 Abnormal testosteron e 986019718 Active 2021 Robyn Ordonez APRN [address], [place], [address], [facility] 4 07:47:59 Vitamin D deficiency 01925461 Active 2021 Robyn Ordonez APRN [address], [address], [place], [address], [employer] [facility] 4 07:48:23 Chronic constipatio n 538943675 Active 2022 Robyn Ordonez APRN [address], [place], [address], [employer] [facility] 4 07:48:06 Mixed anxiety and depressive disorder 086193629 Active 2022 Robyn Ordonez APRN [address], [address], [place], [address], [facility] 4 07:48:16 Testosteron e level above reference range 931800679 Active 2022 ABEL Soriano [address], [address], [place], [address], [employer] [facility] 3 09:37:30 Irregular periods 63865979 Active 2022 Radha Grande MD [address], [address], [place], [address], [facility] 3 09:26:49 Fatigue 12733581 Active 2022 Radha Grande MD [address], [place], [address], [employer] [facility] 3 09:27:36 Abdominal bloating 847064366 Active 2022 Radha Grande MD [address], [place], [address], [place] 3 09:29:00 Abdominal pain 05431332 Active 2022 Radha Grande MD [address], [place], [address], [facility] 3 09:32:20 Goiter 2296001 Active 2022 Robyn Ordonez APRN [address], [address], [place], [address], IT[facility] 4 07:48:13 Chronic abdominal pain 272237269 Active 2022 Robyn Ordonez APRN [address], [place], [address], [facility] 4 07:48:03 Headache 34905068 Active 2022 ABEL Soriano [address], [place], [address], IT[facility] 3 12:51:21 Acute otitis media 6226990 Active 2023 Robyn Ordonez APRN [address], [place], [address], IT[facility] 4 11:56:46 Perforation of right tympanic membrane 3640093123638 108 Active 2023 ABEL Shirley [address], [place], [address], ITN 4 16:16:01 Problem Notes None recorded. Procedures Surgical History Date Name Laterality Status Provider Name and Address Organization Details Recorded Time Myringotomy Tube Placement completed Autumn Delgado RN [place] [facility] 07/24/2024 15:39:09 Imaging Results None recorded. Procedure [...] Not Available Vitals Date Recorded Body height Body mass index (BMI) Body weight Body temperature Provider Name and Address Organization Details Last Updated DateTime 09/05/2024 162.56 cm 43.1 kg/m2 991615.68 g 97.8 [degF] Autumn Delgado RN [facility] 09/05/2024 09:26:56 Date Recorded Body height Body mass index (BMI) Body weight Body temperature Heart rate Oxygen saturation Oxygen saturation in Arterial blood by Pulse oximetry Systolic And Diastolic Provider Name and Address Organization Details Last Updated DateTime 162.56 cm 44.3 kg/m2 222356. 83 g 97.4 [degF] 84 /min 99 % 99 % 114/74 mm[Hg] Camilla Dennis MA [place] [facility] 09:03:46 Date Recorded Body height Provider Name an d Address Organization Details Last Updated DateTime 03/08/2023 162.56 cm Laurie Winslow LPN [facility] 03/08/2023 11:16:09 Date Recorded Body height Body mass index (BMI) Body weight Body temperature Provider Name and Address Organization Details Last Updated DateTime 07/24/2024 162.56 cm 43.9 kg/m2 628039.65 g 97.7 [degF] Autumn Delgado RN [facility] 07/24/2024 15:41:05 Social History Question Answer Notes LastModified by Organizat ion Details LastModified Time Tobacco Smoking Status Never Smoker Not Available [facility] 10/13/2022 21:29:56 What Is Your Level Of Caffeine Consumption? Moderate Diet Pepsi 3-4 Times A Day [id number] Information not available 10/13/2022 In The 14 Days Before Symptom Onset, Have You Had Close Contact With A Laboratory-confi rmed COVID-19 While That Case Was Ill? No [id number].[id number] Information not available 10/13/2022 In The 14 Days Before Symptom Onset, Have You Had Close Contact With A Person Who Is Under Investigation For COVID-19 While That Person Was Ill? Yes [id number].03320 [id number] Information not available 10/13/2022 What Type Of [...] Been Counseled For Unhealthy Alcohol Use? No MIGRATION.28123 85588 Information not available 10/13/2022 Do You Have [...] Has Tobacco Cessation Counseling Been Provided? No [id number].[id number] Information not available 10/13/2022 Have You Recently Traveled Abroad? No MIGRATION.87627 48629 Information not available 10/13/2022 Do You Have Any Dietary Restrictions? No MIGRATION.76309 36242 Information not available 10/13/2022 Sex: Unknown Functional Status Question Answer Note LastModified by Organizat ion Details LastModified Time Do you use any illicit or recreational drugs? No MIGRATION.40888 30819 Information not available 10/13/2022 Do you or have you ever used any other forms of tobacco or nicotine? Yes MIGRATION.86768 71064 Information not available 10/13/2022 What is your level of alcohol consumption? Occasional MIGRATION.74279 22707 Information not available 10/13/2022 Are you currently employed? 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 Former user of electronic cigarettes MIGRATION.32738 99437 Information not available 10/13/2022 What is your exercise level? Occasional MIGRATION.28851 91660 Information not available 10/13/2022 Mental Status Question Answer Note LastModified by Organization D etails LastModified Time Do you feel stressed (tense, restless, nervous, or anxious, or unable to sleep at night)? [id number] Information not available 02/08/2024 Family History Relationship Description Onset Age of this Age Resolved Age Notes LastModified by Organization Details LastModified Time Father No current problems or disability [email or web address] Not available 10/14 09:15:11 Mother No current problems or disability hypert ension , skin cancer Not available 11/09/2022 09:15:02 Paternal Grandmother No current problems or disability pancre atis cancer [email or web address] Not available 11/09/2022 09:15:50 Notes:NO ENT Medical History Condition Response LUNG DISEASE/DISORDER Y DEPRESSION (INCLUDING POST ) Y HAVE YOU BEEN HOSPITALIZED OR SEEN IN [facility] ER IN THE PAST YEAR ? Y HEADACHES/MIGRAINES Y OBESITY Y GERD/NAUSEA Y Gynecological History Statement/Question Response How many [...] Recorded Time Tdap 1 completed Not Available [facility] 10/13/2022 21:32:21 Influenza, split virus, quadrivalent, preservative 0 completed Not Available [facility] 10/13/2022 21:32:21 HPV9 8 completed Not Available [facility] 10/13/2022 21:32:21 Hep A, ped/adol, 2 dose 7 completed Not Available [facility] 10/13/2022 21:32:21 meningococcal ACWY, unspecified formulation 7 completed Not Available [facility] 10/13/2022 21:32:21 meningococcal ACWY, unspecified formulation 2 completed Not Available [facility] 10/13/2022 21:32:21 Tdap 2 completed Not Available [facility] 10/13/2022 21:32:22 varicella 2 completed Not Available [facility] 10/13/2022 21:32:22 DTaP 6 completed Not Available [facility] 10/13/2022 21:32:22 MMR 6 completed Not Available [facility] 10/13/2022 21:32:22 TST-PPD intradermal 6 completed Not Available [facility] 10/13/2022 21:32:22 IPV 6 completed Not Available [facility] 10/13/2022 21:32:22 DTaP 2 completed Not Available [facility] 10/13/2022 21:32:23 Hib, unspecified formulation 2 completed Not Available [facility] 10/13/2022 21:32:23 varicella 2 completed Not Available [facility] 10/13/2022 21:32:23 IPV 2 completed Not Available [facility] 10/13/2022 21:32:23 MMR 2 completed Not Available [facility] 10/13/2022 21:32:23 Pneumococcal Conjugate, unspecified formulation 2 completed Not Available [facility] 10/13/2022 21:32:23 TST-PPD intradermal 2 completed Not Available [facility] 10/13/2022 21:32:23 Hep B, adolescent or pediatric 1 completed Not Available [facility] 10/13/2022 21:32:24 DTaP 1 completed Not Available [facility] 10/13/2022 21:32:24 Hib, unspecified formulation 1 completed Not Available [facility] 10/13/2022 21:32:24 Pneumococcal Conjugate, unspecified formulation 1 completed Not Available [facility] 10/13/2022 21:32:24 DTaP 1 completed Not Available [facility] 10/13/2022 21:32:24 Hib, unspecified formulation 1 completed Not Available [facility] 10/13/2022 21:32:24 Pneumococcal Conjugate, unspecified formulation 1 completed Not Available [facility] 10/13/2022 21:32:25 IPV 1 completed Not Available [facility] 10/13/2022 21:32:25 DTaP 1 completed Not Available [facility] 10/13/2022 21:32:25 Hib, unspecified formulation 1 completed Not Available [facility] 10/13/2022 21:32:25 Pneumococcal Conjugate, unspecified formulation 1 completed Not Available [facility] 10/13/2022 21:32:25 IPV 1 completed Not Available [facility] 10/13/2022 21:32:25 Hep B, adolescent or pediatric 1 completed Not Available [facility] 10/13/2022 21:32:25 Hep A, adult 1 completed Not Available [facility] 10/13/2022 21:32:26 Hep B, adult 1 completed Not Available [facility] 10/13/2022 21:32:26 Influenza, split virus, quadrivalent, PF 0 completed Not Available [facility] 10/13/2022 21:32:26 Influenza, split virus, quadrivalent, PF 3 completed Robyn Ordonez, BRIM ROUNDER [address] [facility] [address], [place], [address], [facility] 02/08/2024 09:12:04 Past Encounters Encounter ID Performer Location Encounter Start Date Encounter Closed Date Diagnosis/Indication Diagnosis SNOMED-CT Code Diagnosis ICD10 Code Diagnosis IMO Codes Diagnosis Note [id number] Christi Slater MD [place] [address] [place] [address] 03/10/2022 00:00:00 03/10/2022 10:18:50 [id number] Christi Slater MD [facility] [address] [place] [address] 06/29/2022 00:00:00 06/29/2022 09:57:58 [id number] ABEL Soriano [facility] Primary Care [facility] [address] [facility] [address] [place] [address] 11/09/2022 09:02:55 11/09/2022 09:48:24 Body mass index 40+ - severely obese 139334824 Z68.41 Advised eat 3 meals daily with 1-2 healthy snacks, eliminate caloric drinks, no grazing btw meals, reduce packaged foods, portion control, modificati on of cooking style, low fat/low sugar items, 30 minutes of exercise at least 3x/week, reduce emotional/ stress eating, increase fruits/veg etables, take 15-20 minutes to eat. Chronic constipation 236 556915 K59.09 ChronicPat ient presents with constipati on. [...] develop. 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 Denies any SI/HI at this time. Pt to stop medication and be seen if s/e develop. Pt to call with update in 2 weeks.RTO 4 weeks for f/u on medication Testostero ne level above reference range 645603632 E28.1 Keep scheduled appt with endocrinol hazel next month (11/16/22) [id number] Radha Grande MD [facility] [place] [address] [place] [address] 11/16/2022 08:44:16 11/16/2022 10:20:17 Irregular periods 30252402 N92.6 Send for full hormone panel as she has mildly elevated testostero ne - need repeat fasting glucose and insulin to screen for hyperinsul inemia. send for progestero ne to screen for ovulatory function. 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 She has nexplenon implant since 2019. Fatigue 78525209 R53.83 Will send for thyroid antibodies to screen for autoimmune thyroid disease in addition to CBC, CMP, ferritin and B12/folate to screen for other potential secondary causes of fatigue. Vitamin D deficiency 347 44488 E55.9 Vit D markedly low- recommende d she start on vitamin D 50 once weekly-goa l levels up to 50 ng/mL to optimize bone and immune health. Abdominal bloating 19123 9008 R14.0 Send for elastase / food allergy and fecal fat to screen for EPI or malabsorpt ion. Abdominal pain 94048312 R10.9 refer to gastroente rology as patient having more frequent / recurrent lower quadrant abdominal pain-she feels she is having more gastric ulcers - she has never had an EGD or imaging other than through emergency room. Goiter 7574851 E04.9 Will send for baseline thyroid ultrasound [...] n in the electronic health record, heavenen rasheedy interpreti ng results and communicat ing results to the patient. RTC in 3-4 months. Patient was provided a handwritte n lab order which contains our fax number. If she chooses to go outside of the [facility] system to obtain labwork she was [...] ing. Thank you for this consultati on. [id number] ABEL Soriano [facility] [address] [place] [address] 02/01/2023 08:48:46 02/01/2023 11:31:59 Chronic constipation 868994720 K59.09 ChronicPat ient presents with constipati on. [...] y. 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 Denies any SI/HI at this time. Pt to stop medication and be seen if s/e develop.Ci talopram 20mg dailyHydro xyzine 10mg TID PRN Testostero ne level above reference range 474306219 E28.1 ChronicRev iewed endocrinol ogy note from Dr. Grande (11/16/22): Send for full hormone panel as she has mildly elevated testostero ne - need repeat fasting glucose and insulin to screen for hyperinsul inemia. send for progestero ne to screen for ovulatory function. 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 She has nexplenon implant since 2020. Adult [facility] th examination 228714017 Z13.29 Z13.220 Z13.89 Z13.1 Z00.01 Adult Health Exam--Labs ordered by endocrinol hazel.--Mamm ogram at 40yo--[place] n screening at 45yo--Bone Density at 65yo if indicated. --PAP/WWE- recommende d. Pt to schedule.- -Tdap recommende d q 10 years-up to date.--Flu recommende d yearly.--C OVID-19 recommende d-complete d.--Encour aged yearly dental, vision, hearing screenings Tuberculos is screening 093101730 Z11.1 Needs 2-lujp0cc on 02/01/23, return for reading on 02/04Second step must be at least 7 days after, but not more than 21 days, after the first. [id number] ABEL Soriano [facility] Malcolm stephanie [address] [facility] [address] [place] [address] 03/08/2023 10:45:32 03/08/2023 14:55:04 [id number] Cindy Henley MD [facility] Karolyn joe [address] [facility] [address] [place] [address] 03/15/2023 15:34:20 03/15/2023 16:45:52 [id number] Winter schofield MD [facility] Vianey joe [address] [facility] [address] [facility] [place] [address] 02/08/2024 08:54:06 02/08/2024 09:34:31 Obesity 714763264 E66.9 Vitamin D deficiency 347 00135 E55.9 Goiter 6007505 E04.9 Long-term current use of hormonal contraceptive 1586728631 68767 Z79.3 [id number] Eb Deng MD [facility] [place] [address] [place] [address] 07/24/2024 15:30:18 07/24/2024 16:17:53 Perforation of right tympanic membrane 6381493526 805265 H72.91 [id number] Eb Deng MD [facility] [place] [address] [place] [address] 09/05/2024 09:21:13 09/05/2024 10:07:41 Perforation of right tympanic membrane 3344417168 137814 H72.91 Complete healing of the right tympanic membrane present. Follow-up as needed. Health Concerns Section Related Observation LastModified by Organization Detai ls LastModified Time None Recorded Concern Status LastModified by Organization Details LastModified Time None Recorded Advance Directives Directive None Recorded Payers Insurance Date Sequence Insurance Name Policy Number Policy Myles Covered Member ID Myles Member ID Guarantor Name 09/02/2024 1 [place] [id number] Betzaida Ortega [id number] Cherry Ortega 02/01/2023 1 [employer] [facility] (PPO) [id number] Betzaida Ortega [id number] Cherry Ortega 10/16/2024 [facility] Cherry Ortega SELF SELF Cherry Ortega 07/20/2023 1 [facility] [id number] Betzaida Ortega [id number] Cherry Ortega 02/08/2024 1 [place] Cherry Ortega [id number] Cherry Ortega Notes Date Note Type Note [...] but doesn't feel like it works. Robyn Ordnoez, [employer]IM ROUNDER [address], [place], [address], [place] [facility] 02/08/2024 09:35:45 07/24/2024 text/html this patient has [...] Eustachian tube dysfunction. ABEL Shirley [address] [facility], [place], [address], [facility] 07/24/2024 16:17:29 09/05/2024 text/html This patient presents to the office for a 6 week follow-up to reassessed a previous right tympanic membrane perforation. She reports that all her symptoms have resolved. Denies any hearing changes. ABEL Shirley [address], [place], [address], [facility] 09/05/2024 10:07:18 OBGyn Episode No OBEpisode recorded.
[2025-06-18 19:33] LABS: Alanine Aminotransferase 19 U/L (6-35); Albumin Level 4.6 g/dL (3.5-5.1); Alkaline Phosphatase 99 U/L (38-126); Anion Gap 7 mmol/L (4-12); Aspartate Amino Transferase 67 U/L (14-36); Bilirubin,Total 0.7 mg/dL (0.2-1.3); Blood Urea Nitrogen 15 mg/dL (7-17); Calcium 9.4 mg/dL (8.4-10.2); Carbon Dioxide 26 mmol/L (22-30); Chloride 102 mmol/L (98-107); Estimated Glomerular Filt Rate > 60; Glucose 80 mg/dL (65-110); Potassium 4.3 mmol/L (3.4-5.0); Sodium 135 mmol/L (137-145); Total Protein 8.1 g/dL (6.3-8.2)
[2025-06-18 20:20] LABS: Thyroid Stimulating Hormone 1.330 uIU/mL (0.465-4.680)
[2025-06-18 23:03] LABS: Hemoglobin A1C 5.1 % (<5.7)
== END 2025-06-18 08:36 | disposition home or self-care (01) ==
LOC: ANHBWCLAB 08:37
PROVIDERS: PCP Nurse Practitioner Adult Health; Visit Provider Nurse Practitioner Adult Health
DX: Z13.9 Encounter for screening, unspecified (principal)
CPT/HCPCS: 36415; 80053; 83036; 84443

== ENCOUNTER 2025-07-21 08:06 | Emergency (ER) | payer OTHER, SELFPAY ==
--- NOTE | 2025-07-21 08:09 | ED.GENADULT ---
HPI - General Adult General Chief complaint: Ear Stated complaint: Ear Pain Time Seen by Provider: 07/21/25 08:09 Source: patient Mode of arrival: ambulatory Limitations: no limitations History of Present Illness HPI narrative: 24-year-old female patient presents to [facility] with complaints of right ear pain. Patient states that she had a cold about a week ago and states for the last 2 days she started having some ear pain. Denies fevers body aches or chills. Patient states she has had chronic ear infections past 4 years ever since Getting sick with COVID. Patient states she has just been taking DayQuil NyQuil for her symptoms. Related Data Allergies Allergy/AdvReac Type Severity Reaction Status Date / Time No Known Allergies Allergy Verified 07/21/25 08:25 Review of Systems Review of Systems: CONSTITUTIONAL: Denies fever, chills, or sweats. EYES: Denies visual changes, redness, or discharge. ENT: Denies rhinorrhea, congestion, sore throat, Positive right otalgia. CARDIOVASCULAR: Denies chest pain, palpitations, or edema. RESPIRATORY: Denies cough or dyspnea. GASTROINTESTINAL: Denies abdominal pain, nausea, vomiting, or diarrhea. GENITOURINARY: Denies dysuria or hematuria. SKIN: Denies rash or itching. MUSCULOSKELETAL: Denies back pain, joint pain, or myalgia. NEUROLOGIC: Denies headache, numbness, or weakness. PSYCHIATRIC: Denies anxiety or depression. FOR[facility]LY [facility], [facility] Past Medical History Medical History (Updated 07/21/25 @ 08:35 by Leigh Hatch APRN) Chronic ear infection Obesity Anxiety and depression Insomnia Constipation GERD (gastroesophageal reflux disease) Family History Family History Grandparent Hypertension Grandparent Depression Cancer Anxiety Social History Social History Social History: Patient drinks alcohol occasionally, denies tobacco or drug use. Smoking status: Never smoker Alcohol intake: former Substance use type: does not use Lack of Transportation: No Lack of Food: Never True Current Housing: I Have Housing Concerned About Future Housing: No Difficulty Paying Gas/Electric Bills: No Difficulty Paying for Meds: No Currently Unemployed: No Education: High School Diploma/GED Difficulty w/ Childcare or Family Care: No Living arrangements: with family Additional occupation/education comments: Employed PT Gender identity (if verbalized by the patient): Female Agree to blood products: Yes Comments At the time of my signature I agree with nursing past medical history, surgical, social, and family history. There is no relevant family history pertinent to the presenting complaint. Exam Narrative: GENERAL: Well-appearing, well-nourished, and in no acute distress. HEAD: Normocephalic, atraumatic. EYES: PERRLA and EOMI. ENT: Nares clear, no rhinorrhea or epistaxis. Mucous membranes moist. posterior pharynx with no erythema, tonsillar enlargement, exudates or lesions present. The right ear does show some fluid behind the ear no redness noted. NECK: Supple. No lymphadenopathy CHEST: Clear to auscultation. No respiratory distress. HEART: Regular rate and rhythm. No murmur heard. Normal peripheral pulses. ABDOMEN: Soft, nontender, nondistended, normal active bowel sounds. EXTREMITIES: Normal range of motion. No edema. SKIN: Warm, dry, no rash. NEURO: No focal deficits. Alert and oriented x3. Course Course Level of Care: Express Care Visit Vital Signs Vital signs: Vital Signs Temperature 36.6 C 07/21/25 08:15 Pulse Rate 75 07/21/25 08:15 Respiratory Rate 16 07/21/25 08:15 Blood Pressure 137/79 07/21/25 08:15 Pulse Oximetry 100 07/21/25 08:15 Temperature 36.6 C 07/21/25 08:15 Pulse Rate 75 07/21/25 08:15 Respiratory Rate 16 07/21/25 08:15 Blood Pressure 137/79 07/21/25 08:15 Pulse Oximetry 100 07/21/25 08:15 Vital signs reviewed. The patient has been informed that they may have pre-hypertension or Hypertension based on a BP reading in the department. I recommend that the patient call the primary care provider listed on their discharge instructions or a physician of their choice this week to arrange follow up for further evaluation of possible pre-hypertension or Hypertension MDM MDM Narrative Medical decision making narrative: Plan care patient is discharged home with oral antibiotics for ear infection. Discussed with patient also recommend taking a daily antihistamine to help promote the sinus drainage to prevent ear infections in the future as well as increasing her immune system reaction with vitamin-C, vitamin-D and zinc as needed. Differential Diagnosis Differential Diagnosis: Differential diagnosis: Otitis media, otitis externa, perforated TM, infection of the outer ear, foreign body or cerumen impaction, ruptured TM, acute mastoiditis, ligament otitis externa, dehydration, pneumonia, sepsis, dental or intraoral infection, TMJ dysfunction Critical Care Time Critical Care Time Critical Care Time: No Discharge Plan Discharge Clinical Impression: Acute right otitis media, Fluid level behind tympanic membrane of right ear Patient Disposition: Home Condition: Stable Instructions: Antibiotic Form, Ear Infection (ED) Additional Instructions: An ear infection is also called otitis media. An ear infection may be caused by blocked or swollen eustachian tubes. Eustachian tubes connect the middle ear to the back of the nose and throat. They drain fluid from the middle ear. With an ear infection, fluid builds up and is infected by germs. The germs grow easily in fluid trapped behind the eardrum. DISCHARGE INSTRUCTIONS: Call 911 or have someone call 911 for the following: You have a seizure. Return to the emergency department if: You have a fever and a stiff neck. Contact your healthcare provider if: Your ear pain gets worse or does not go away, even after treatment. The outside of your ear is red or swollen. You are vomiting or have diarrhea. You have fluid coming from your ear. You have questions or concerns about your condition or care. Medicines: Acetaminophen decreases pain and fever. It is available without a doctor's order. Ask how much to take and how often to take it. Follow directions. Read the labels of all other medicines you are using to see if they also contain acetaminophen, or ask your doctor or pharmacist. Acetaminophen can cause liver damage if not taken correctly. Do not use more than 4 grams (4,000 milligrams) total of acetaminophen in one day. NSAIDs , such as ibuprofen, help decrease swelling, pain, and fever. This medicine is available with or without a doctor's order. NSAIDs can cause stomach bleeding or kidney problems in certain people. If you take blood thinner medicine, always ask your healthcare provider if NSAIDs are safe for you. Always read the medicine label and follow directions. Ear drops help treat your ear pain. Antibiotics help treat a bacterial infection that caused your ear infection. Take your medicine as directed. Contact your healthcare provider if you think your medicine is not helping or if you have side effects. Tell him or her if you are allergic to any medicine. Keep a list of the medicines, vitamins, and herbs you take. Include the amounts, and when and why you take them. Bring the list or the pill bottles to follow-up visits. Carry your medicine list with you in case of an emergency. Prevent an ear infection: Wash your hands often. Use soap and water. Wash your hands after you use the bathroom, change a child's diapers, or sneeze. Wash your hands before you prepare or eat food. Handwashing Stay away from people who are ill. Some germs are easily and quickly spread through contact. Patient Language: Iraqi Prescriptions: New amoxicillin-pot clavulanate 875-125 mg tablet 1 tablet PO Q12H 7 Days Qty: 14 0RF No Action Nexplanon 68 mg implant 1 implant subdermal ONCE Qty: 1 0RF Rx Instructions: as a single dose trazodone 50 mg tablet See Rx Instructions .ROUTE .COMPLEX Qty: 90 0RF Dose Instruction: TAKE 1 TABLET BY MOUTH EVERY DAY AT BEDTIME NEEDED FOR INSOMNIA Rx Instructions: TAKE 1 TABLET BY MOUTH EVERY DAY AT BEDTIME NEEDED FOR INSOMNIA ondansetron 8 mg tablet,disintegrating 8 mg PO Q12H PRN (Reason: nausea and vomiting) Qty: 20 0RF Follow-up/Referrals: Alie Yeung APRN [Primary Care Provider, Family Practice] Time of Disposition: 08:30
[2025-07-21 08:15] VITALS: BP 137/79; PULSE 75; RESP 16; TEMP 36.6; O2SAT 100
== END 2025-07-21 08:33 | disposition home or self-care (01) ==
PROVIDERS: Emergency Provider Nurse Practitioner Family; PCP Nurse Practitioner Adult Health
DX: H66.91 Otitis media, unspecified, right ear (principal); H73.891 Other specified disorders of tympanic membrane, right ear; K21.9 Gastro-esophageal reflux disease without esophagitis; E66.9 Obesity, unspecified; Z68.41 Body mass index [BMI] 40.0-44.9, adult; F32.A Depression, unspecified
CPT/HCPCS: 99213; G0463

== ENCOUNTER 2025-08-13 21:15 | Inpatient (IN) | payer OTHER, SELFPAY ==
--- NOTE | ~2025-08-13 | XR_ITS ---
XR chest 1V portable INDICATION:fever, sepsis . REFERENCE: None FINDINGS: A single AP of the chest demonstrates 16 2016 The lungs are clear. There is no evidence of pneumothorax or pleural effusion. IMPRESSION: No acute pulmonary findings. Reviewed, dictated and finalized at location S. GENCY DEPARTMENT RN
[2025-08-13 21:19] VITALS: BP 90/58; PULSE 143; RESP 24; TEMP 37.8; O2SAT 100
--- NOTE | 2025-08-13 21:42 | ECG_ITS ---
Test Date: 2025-08-13 21:54:38 Measurements Intervals Suring Rate: 126 P: 30 TX: 115 QRS: 80 QRSD: 86 T: -10 QT: 363 QTc: 527 Interpretive Statements SINUS TACHYCARDIA WITH SHORT TX INTERVAL MINIMAL Q WAVES- ANTEROLAT/INF LEADS BORDERLINE ST-T WAVE ABNORMALITY- ANTEROLAT/INF LEADS BASELINE ARTIFACT- I, III, AVR, AVL, AVF ABNORMAL ECG No previous ECG available for comparison Electronically Signed On 08-13-2025 21:58:06 DIRECTOR AND PROFESSOR by Jeovany Giordano D.O.
--- NOTE | 2025-08-13 21:45 | ED_ITS ---
HPI - URI/Sore Throat General Chief Complaint: Nausea/Vomiting/Diarrhea Stated Complaint: chills, vomiting Time Seen by Provider: 08/13/25 21:34 History of Present Illness HPI Narrative: 24-year-old female recently diagnosed with strep throat yesterday presenting with worsening symptoms with nausea vomiting, chills, sore throat and found to be hypotensive tachycardic and febrile in triage. Patient brought to room 4 for evaluation and resuscitation. Patient states she has been taking her penicillin but vomited up her last dose. She has been taking Tylenol for her fevers intermittently responsive. She states she has been having diffuse chills and myalgias. Tested negative for COVID fluid RSV. Positive for strep throat. No chest discomfort but she states she is having some gas pains in her epigastrium. No diarrhea. Reports lightheadedness and presyncope. No traumatic injuries. Was otherwise in her normal state of health. Related Data Home Medications ?Medication ?Instructions ?Recorded ?Confirmed ?Last Taken ?Type tirzepatide 4.4 mg subcut WEEKLY 5 08/14/25 08/04/25 History Allergies Allergy/AdvReac Type Severity Reaction Status Date / Time No Known Allergies Allergy Verified 08/13/25 21:27 Review of Systems 2 Review of Systems: As reviewed above in HPI All systems reviewed & are unremarkable except as noted in HPI and below PMFSH Past Medical History Medical History (Updated 08/14/25 @ 07:53 by Seun Dumont MD) UTI (urinary tract infection) Pneumothorax Chronic ear infection Obesity Anxiety and depression Insomnia Constipation GERD (gastroesophageal reflux disease) Surgical History Surgical History (Updated 08/14/25 @ 05:00 by Mikayla Mcnulty APRN) No significant past surgical history Family History Family History Grandparent Hypertension Grandparent Depression Cancer Anxiety Social History Social History (Updated 08/14/25 @ 05:01 by Mikayla Mcnulty APRN) Social History: Patient drinks alcohol occasionally, denies tobacco or drug use. She lives with . She has no children. 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 Smoking status: Never smoker Alcohol intake: former Substance use type: does not use Lack of Transportation: No Lack of Food: Never True Current Housing: I Have Housing Concerned About Future Housing: No Difficulty Paying Gas/Electric Bills: No Difficulty Paying for Meds: No Currently Unemployed: No Education: High School Diploma/GED Difficulty w/ Childcare or Family Care: No Living arrangements: with family Additional occupation/education comments: Employed PT Gender identity (if verbalized by the patient): Female Agree to blood products: Yes Exam 2 Narrative: GENERAL: ill-appearing, tachycardic, hypotensive, febrile tachypneic. HEAD: Normocephalic and atraumatic EYES: PERRLA, extraocular moves are intact ENT: Nares clear, no rhinorrhea or epistaxis. Mucous membranes moist. NECK: Supple. CHEST: [Clear to auscultation. No respiratory distress.] HEART: [Regular rate and rhythm]. No murmur heard. [Normal peripheral pulses.] ABDOMEN: [Soft, nondistended], [nontender], [No rigidity or guarding] EXTREMITIES: Normal range of motion. [No edema.] SKIN: Warm, dry, no rash. NEURO: [No focal deficits]. Alert and oriented [x3.] PSYCH: [Normal mood and affect.] Course Vital Signs Vital signs: Vital Signs Temperature 37.8 C H 08/13/25 21:19 Pulse Rate 143 H 08/13/25 21:19 Respiratory Rate 24 H 08/13/25 21:19 Blood Pressure 90/58 L 08/13/25 21:19 Pulse Oximetry 100 08/13/25 21:19 Oxygen Delivery Room Air 08/13/25 21:19 Temperature 37.0 C 08/14/25 06:05 Pulse Rate 105 H 08/14/25 06:05 Respiratory Rate 18 08/14/25 06:05 Blood Pressure 118/52 L 08/14/25 06:05 Pulse Oximetry 99 08/14/25 06:05 Oxygen Delivery Room Air 08/13/25 21:19 [facility] Narrative Medical decision making narrative: 24-year-old female recently diagnosed with strep throat yesterday presenting with worsening symptoms with nausea vomiting, chills, sore throat and found to be hypotensive tachycardic and febrile in triage. Patient brought to room 4 for evaluation and resuscitation. Patient states she has been taking her penicillin but vomited up her last dose. She has been taking Tylenol for her fevers intermittently responsive. She states she has been having diffuse chills and myalgias. Tested negative for COVID fluid RSV. Positive for strep throat. No chest discomfort but she states she is having some gas pains in her epigastrium. No diarrhea. Reports lightheadedness and presyncope. No traumatic injuries. Was otherwise in her normal state of health. patient is ill-appearing, hypotensive 90/58, tachycardic 140 to 150s. Tachypneic 24. Febrile 37.8? C. suspect systemic inflammatory reaction secondary to her recent diagnosis illness of strep pharyngitis. She has been taking her antibiotics but vomiting with dosing. Could also be bacteremia but less likely as she is otherwise a healthy female with no other comorbidities besides obesity. Possibility of dehydration or electrolyte imbalances. IV was established, blood cultures, lactic acid was ordered. She was given 2 L of fluid for ideal body weight 30 cc/kg bolus. Started on Unasyn IV. Chest x-ray and EKG obtained. Laboratory studies show an elevated lactic acid, elevated white blood cell count and hypotension with tachycardia concerning for SIRS criteria. Vital signs did improve after fluid resuscitation and antibiotics. She was mentating appropriately and safe for admission to the hospital at this time. Initially placed into IMU but given her clinical improvement hospitalist downgraded her to [facility] and patient comfortable the plan. Fever did come down after interventions. Differential Diagnosis Differential Diagnosis: She has been taking her antibiotics but vomiting with dosing. Could also be bacteremia but less likely as she is otherwise a healthy female with no other comorbidities besides obesity. Possibility of dehydration or electrolyte imbalances. Lab Data MDM Lab Attestation statement: I personally reviewed the patient's lab results. 08/13/25 22:08 08/13/25 22:08 Labs: Lab Results 08/13/25 Range/Units 22:08 WBC 14.5 H (4.5-10.0) K/mm3 RBC 5.15 (4.2-5.4) M/mm3 Hgb 14.7 (12.0-15.0) g/dL Hct 44.2 (37.0-47.0) % MCV 85.8 (80-100) fl MCH 28.5 (26-34) pg MCHC 33.3 (32-36) g/dl RDW 12.5 (11.5-14.5) % Plt Count 273 (150-375) k/mm3 MPV 11.0 H (7.4-10.4) fl Immature Gran % (Auto) 0.5 (0-0.5) % Neut % (Auto) 94.2 H (45.5-73.1) % Lymph % (Auto) 3.1 L (18.3-44.2) % [place] % (Auto) 1.8 L (2.6-8.5) % Eos % (Auto) 0.1 (0-4.4) % Baso % (Auto) 0.3 (0.2-1.2) % Lymph # (Auto) 0.45 L (0.9-3.2) K/mm3 [place] # (Auto) 0.3 (0.1-0.6) K/mm3 Eos # (Auto) 0.0 (0-0.3) K/mm3 Baso # (Auto) 0.1 (0.0-0.1) K/mm3 Abs Immat Gran (auto) 0.07 H (0.00-0.031) K/mm3 Absolute Neuts (auto) 13.7 H (1.3-6.7) K/mm3 Absolute Nucleated RBC 0.000 (0.0-0.012) K/mm3 Nucleated RBC % 0.0 (0.0-0.2) % PT 14.2 (11.1-14.7) Seconds INR 1.1 APTT 24.2 (22.3-36.8) Seconds Sodium 139 (137-145) mmol/L Potassium 3.4 (3.4-5.0) mmol/L Chloride 105 (98-107) mmol/L Carbon Dioxide 22 (22-30) mmol/L Anion Gap 12 (4-12) mmol/L BUN 18 H (7-17) mg/dL Creatinine 0.79 (0.7-1.0) mg/dL Estim Creat Clear Calc 114 ml/min Estimated GFR > 60 (59 - ) Glucose 103 (65-110) mg/dL Lactic Acid 2.3 H (0.7-2.0) mmol/L Calcium 9.6 (8.4-10.2) mg/dL Total Bilirubin 0.8 (0.2-1.3) mg/dL AST 59 H (14-36) U/L ALT 42 H (6-35) U/L Alkaline Phosphatase 95 (38-126) U/L C-Reactive Protein < 0.5 (<1.0) mg/dL Total Protein 7.9 (6.3-8.2) g/dL Albumin 4.6 (3.5-5.1) g/dL Imaging Data Attestation: I personally reviewed and interpreted this imaging study as follows: Radiologist's impression: ITS Impressions Chest X-Ray 08/13/25 22:21 IMPRESSION: No acute pulmonary findings. Discharge Plan Discharge Clinical Impression: SIRS (systemic inflammatory response syndrome), Strep pharyngitis, Acute dehydration Patient Disposition: Still a Patient Condition: Stable
[2025-08-13 22:18] LABS: Hematocrit 44.2 % (37.0-47.0); Hemoglobin 14.7 g/dL (12.0-15.0); Immature Granulocyte Percent A 0.5 % (0-0.5); Lymphocytes Absolute Auto 0.45 K/mm3 (0.9-3.2); Mean Corpuscular HGB Conc 33.3 g/dl (32-36); Mean Corpuscular Hemoglobin 28.5 pg (26-34); Mean Corpuscular Volume 85.8 fl (80-100); Nucleated Red Blood Cells Absolute Auto 0.000 K/mm3 (0.0-0.012); Nucleated Red Blood Cells Perc 0.0 % (0.0-0.2); Platelet Count Result 273 k/mm3 (150-375); Red Blood Count 5.15 M/mm3 (4.2-5.4); White Blood Count 14.5 K/mm3 (4.5-10.0)
[2025-08-13] MEDS: KETOROLAC 15 MG/ML VIAL (*BKC) IV PUSH (22:25)
[2025-08-13] MEDS: LACTATED RINGERS 1,000 ML 999 ML IV CONT ×2 (22:32→22:33)
[2025-08-13 22:34] LABS: Alanine Aminotransferase 42 U/L (6-35); Albumin Level 4.6 g/dL (3.5-5.1); Alkaline Phosphatase 95 U/L (38-126); Anion Gap 12 mmol/L (4-12); Aspartate Amino Transferase 59 U/L (14-36); Bilirubin,Total 0.8 mg/dL (0.2-1.3); Blood Urea Nitrogen 18 mg/dL (7-17); CRP < 0.5 mg/dL (<1.0); Calcium 9.6 mg/dL (8.4-10.2); Carbon Dioxide 22 mmol/L (22-30); Chloride 105 mmol/L (98-107); Estimated CRCL calculation 114 ml/min; Estimated Glomerular Filt Rate > 60; Glucose 103 mg/dL (65-110); Potassium 3.4 mmol/L (3.4-5.0); Sodium 139 mmol/L (137-145); Total Protein 7.9 g/dL (6.3-8.2)
[2025-08-13 22:35] LABS: INR 1.1; Prothrombin Time 14.2 Seconds (11.1-14.7)
[2025-08-13 22:36] LABS: Partial Thromboplastin Time 24.2 Seconds (22.3-36.8)
[2025-08-13 23:00] VITALS: TEMP 37
[2025-08-13] MEDS: AMPICILLIN SODIUM/SULBACTAM 3 GM in SODIUM CHLORIDE 0.9% IV 100 ML 200 ML IVPB (23:07)
[2025-08-13] MEDS: ONDANSETRON INJ 4 MG/2 ML VIAL IV PUSH (23:08)
[2025-08-13 23:30] VITALS: BP 100/68; PULSE 130; RESP 22; O2SAT 99
[2025-08-14] VITALS (12 sets, daily range): BP systolic 114–132; BP diastolic 52–76; PULSE 91–116; RESP 13–20; TEMP 36.2–37.1; O2SAT 98–100; BMI 42.2
[2025-08-14] MEDS: ACETAMINOPHEN 325 MG TABLET 650 MG PO ×2 (01:37→12:52)
[2025-08-14] MEDS: LACTATED RINGERS 1,000 ML 150 ML IV CONT ×3 (01:40→15:37)
--- NOTE | 2025-08-14 01:55 | PM.IMHP2 ---
H&P: HPI History of Present Illness Date/Time: 08/14/25 01:55 Chief Complaint: Upper respiratory infection Narrative: This is a 24-year-old female patient who was diagnosed with strep throat on 08/12/2025. The patient continued to have nausea, vomiting, sore throat, and chills. The patient stated that she was prescribed penicillin. However she was so nauseated that she could not keep down her last dose of penicillin. The patient has been having fevers and has been taking Tylenol for that. Patient stated that she was tested for COVID and RSV at the urgent care and she was found to be negative. Her white count was noted to be 14.5. Her initial lactic was 2.3 in is normal at 1.0 now after IV fluids. AST is 59 and ALT is 42. However the patient stated that she has a fatty liver and her liver enzymes were found to be elevated in the past. Patient has 1+ protein, trace ketones, blood, 1+ leukocyte esterase, RBCs greater than 100, urine wbc's 21-50, and urine bacteria 1+ in her urinalysis. Influenza a, influenza B, and RSV as well as COVID are negative. Group a strep not detected. However the patient had already had a couple doses of antibiotics for 24 hours. Her initial heart rate was 143 and the [place] is 106. Blood pressure is 90/58. And improved with IV fluids up to the 129/76. The patient is septic. The patient was given IV fluids and started on Unasyn head. She was given Zofran, Toradol, and Dilaudid. Chest x-ray was read as no acute pulmonary findings. The patient is being admitted to observation status on the date of service of 08/14/2025. Review of Systems Constitutional: Constitutional: Reports as per HPI and Reports no additional constitutional complaints Eyes: Eyes: Reports as per HPI and Reports no additional eye complaints ENT: Reports no additional ear, nose, mouth, and throat complaints and Reports Normal hearing present Cardiovascular: Cardiovascular: Reports no additional cardiovascular complaints Respiratory: Respiratory: Reports as per HPI and Reports no additional respiratory complaints Gastrointestinal: Gastrointestinal: Reports as per HPI and Reports no additional gastrointestinal complaints Genitourinary: Genitourinary: Reports no additional female genitourinary complaints Musculoskeletal: Musculoskeletal: Reports no additional musculoskeletal complaints Integumentary/Breasts: Skin/Breast: Reports system reviewed and no additional complaints, except as docu Neurologic: Reports no additional neurologic complaints and Reports Normal hearing present Psychiatric: Psychiatric: Reports no additional psychiatric complaints and Reports as per HPI Hematologic/Lymphatic: Hematologic/Lymphatic: Reports no additional hematologic/lymphatic complaints Allergic/Immunologic: Allergic/Immunologic: Reports no additional allergic/immunologic complaints [facility] Past Medical History Medical History (Updated 08/14/25 @ 05:06 by Mikayla Mcnulty APRN) UTI (urinary tract infection) Pneumothorax Chronic ear infection Obesity Anxiety and depression Insomnia Constipation GERD (gastroesophageal reflux disease) Surgical History Surgical History (Updated 08/14/25 @ 05:00 by Mikayla Mcnulty APRN) No significant past surgical history Family History Family History Grandparent Hypertension Grandparent Depression Cancer Anxiety Social History Social History (Updated 08/14/25 @ 05:01 by Mikayla Mcnulty APRN) Social History: Patient drinks alcohol occasionally, denies tobacco or drug use. She lives with . She has no children. 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 Smoking status: Never smoker Alcohol intake: former Substance use type: does not use Lack of Transportation: No Lack of Food: Never True Current Housing: I Have Housing Concerned About Future Housing: No Difficulty Paying Gas/Electric Bills: No Difficulty Paying for Meds: No Currently Unemployed: No Education: High School Diploma/GED Difficulty w/ Childcare or Family Care: No Living arrangements: with family Additional occupation/education comments: Employed PT Gender identity (if verbalized by the patient): Female Agree to blood products: Yes Meds Home Medications and Allergies Home Medications ?Medication ?Instructions ?Recorded ?Confirmed ?Type trazodone 50 mg tablet See Rx Instructions .Route 05/27/25 08/14/25 Rx .COMPLEX #90 tabs etonogestrel 68 mg subdermal 1 implant subdermal ONCE #1 ea 07/15/25 08/14/25 Rx implant (Nexplanon) amoxicillin 875 mg-potassium 1 tablet PO Q12H 7 days #14 tabs 07/21/25 08/14/25 Rx clavulanate 125 mg tablet tirzepatide 4.4 mg subcut WEEKLY 08/14/25 08/14/25 History Allergies Allergy/AdvReac Type Severity Reaction Status Date / Time No Known Allergies Allergy Verified 08/13/25 21:27 Vital Signs Vital Signs - 24 hr 08/13/25 21:19 08/14/25 00:48 Temperature 100.1 F H Pulse Rate 143 H 114 H Respiratory Rate 24 H 15 Blood Pressure 90/58 L 129/76 Pulse Oximetry 100 100 Oxygen Delivery Room Air Exam Const: General: cooperative, comfortable, no acute distress, well developed, awake, Physically active, average body habitus and well nourished Nutritional Appearance: average body habitus and well nourished Orientation/consciousness: oriented to person, oriented to place, oriented to time and patient oriented x3 Limitations: no limitations HENMT: Head: normal to inspection, No palpable skull fracture present, normocephalic, atraumatic and abrasion Ears: hearing grossly normal bilaterally Other: Tonsils enlarged 2+ with mild erythema. No pus pockets or abscesses located. Eyes: General: appearance normal, both eyes and all related structures Alignment and Position: alignment normal Periorbital: periorbital findings normal Eyelids: eyelids normal EOM: EOMs intact bilaterally Neck: Neck: normal visual inspection, full ROM and no lymphadenopathy Resp: Effort & Inspection: normal respiratory effort Percussion: percussion normal Cardio: Palpation: normal PMI Rhythm: regular rhythm Heart sounds: S1 normal heart sound present and S2 normal heart sound present Peripheral pulses: Peripheral pulses 2+ throughout GI: Inspection: normal to inspection Percussion: Yes normal to percussion Auscultation: normal bowel sounds Rectal Exam: deferred : General: Yes no CVA tenderness Back/Spine/Pelvis: Back: no CVA tenderness Cervical Spine: cervical ROM normal Skin: General skin exam: normal color Lesions: no lesions Rashes: no rashes Trauma: no lacerations or abrasions Wounds: no wounds Hair: normal Nails: normal Neuro: General: oriented to person, oriented to place, oriented to time and patient oriented x3 Cranial nerves: Yes Equal, round and reactive pupils present and Yes Normal hearing present Cognition (Neuro): normal cognition Speech: normal speech Gait exam (Neuro): Normal gait present Motor exam (neuro): 5/5 motor strength present throughout Sensory Exam: normal sensation Extrem: General: normal to inspection Right upper extremity: normal to inspection and shoulder/upper arm Left upper extremity: normal to inspection and shoulder/upper arm Right lower extremity: normal to inspection Left lower extremity: normal to inspection Psych: Appearance: grossly normal Mental Status: mental status grossly normal Speech and movement: Normal speech and movement present Affect: normal affect Attitude: cooperative Thought process: Normal thought process present Thought content: Yes Normal thought content present Insight: Good insight present (Psych) Judgement: Good judgement present (Psych) Results Labs Labs: Short CBC 08/13/25 Range/Units 22:08 WBC 14.5 H (4.5-10.0) K/mm3 Hgb 14.7 (12.0-15.0) g/dL Hct 44.2 (37.0-47.0) % Plt Count 273 (150-375) k/mm3 BMP 08/13/25 22:08 Sodium 139 Potassium 3.4 Chloride 105 Carbon Dioxide 22 BUN 18 H Creatinine 0.79 Glucose 103 Calcium 9.6 Liver Function 08/13/25 Range/Units 22:08 Total Bilirubin 0.8 (0.2-1.3) mg/dL AST 59 H (14-36) U/L ALT 42 H (6-35) U/L Alkaline Phosphatase 95 (38-126) U/L Albumin 4.6 (3.5-5.1) g/dL Attestation: I personally reviewed all lab results ECG Interpretation: Test Date: 2025-08-13 21:54:38 Measurements Intervals [place] Rate: 126 P: 30 CO: 115 QRS: 80 QRSD: 86 T: -10 QT: 363 QTc: 527 Interpretive Statements SINUS TACHYCARDIA WITH SHORT CO INTERVAL MINIMAL Q WAVES- ANTEROLAT/INF LEADS BORDERLINE ST-T WAVE ABNORMALITY- ANTEROLAT/INF LEADS BASELINE ARTIFACT- I, III, AVR, AVL, AVF ABNORMAL ECG No previous ECG available for comparison Electronically Signed On 08-13-2025 21:58:06 [employer] by Jeovany Giordano D.O. Imaging Chest x-ray: Radiologist's impression: Impressions Chest X-Ray 08/13/25 22:21 IMPRESSION: No acute pulmonary findings. Quality VTE Prophylaxis VTE prophylaxis: mechanical ordered Assessment and Plan Assessment and plan (1) Sepsis: Code(s): A41.9 - Sepsis, unspecified organism Status: Acute Assessment and Plan: -the patient was diagnosed with strep a pharyngitis at an outside facility. However the patient his RT in 24 hours of antibiotics and her strep test here was negative. -however the patient is septic with hypotension, tachycardia, and elevated white count with a fever. -the patient is responding to IV fluids.. -Tylenol for fever. -her airway is protected. -tonsils are approximately 2+ enlarged with erythema no pus pockets or abscesses noted. If there is further concern for any abscess may consider a neck CT. -lactic was elevated but responded to IV fluids. -continue with IV fluids. (2) UTI (urinary tract infection): Code(s): N39.0 - Urinary tract infection, site not specified Status: Acute Assessment and Plan: -I did speak with the pharmacist about appropriate antibiotic therapy for the patient. The patient is on Unasyn for strep and this will cover UTI as well. -blood in urine cultures are pending. -the patient carries is diagnosis of sepsis with hypotension, tachycardia, leukocytosis, and fever.
[2025-08-14 02:13] LABS: Strep Group A RT-PCR NOT DETECTED (Negative)
[2025-08-14 02:25] LABS: Influenza A QL RT-PCR Negative (Negative); Influenza B QL RT-PCR Negative (Negative); RSV RNA, RT-PCR Negative (Negative); SARS-CoV-2 RNA PCR Negative (Negative)
[2025-08-14 03:13] LABS: Add Urine Microscopic? YES; Appearance Urine Cloudy (Clear); Glucose Urine UA Negative (Negative); Leukocyte Esterase Ur 1+ LEU/UL (Negative); Nitrate Urine Negative (Negative); Specific Grav Ur 1.028 (1.001-1.035)
[2025-08-14] MEDS: AMPICILLIN SODIUM/SULBACTAM 3 GM in SODIUM CHLORIDE 0.9% IV 100 ML 200 ML IVPB ×2 (05:30→12:40)
[2025-08-14 07:40] LABS: Pregnancy On Board Control Positive
[2025-08-14] MEDS: ONDANSETRON INJ 4 MG/2 ML VIAL IV PUSH (07:54)
--- NOTE | 2025-08-14 07:59 | PC.NURSE ---
Pt complains of Nausea.
[2025-08-14 08:20] LABS: Hematocrit 39.9 % (37.0-47.0); Hemoglobin 13.1 g/dL (12.0-15.0); Immature Granulocyte Percent A 0.3 % (0-0.5); Lymphocytes Absolute Auto 0.37 K/mm3 (0.9-3.2); Mean Corpuscular HGB Conc 32.8 g/dl (32-36); Mean Corpuscular Hemoglobin 28.9 pg (26-34); Mean Corpuscular Volume 87.9 fl (80-100); Nucleated Red Blood Cells Absolute Auto 0.000 K/mm3 (0.0-0.012); Nucleated Red Blood Cells Perc 0.0 % (0.0-0.2); Platelet Count Result 211 k/mm3 (150-375); Red Blood Count 4.54 M/mm3 (4.2-5.4); White Blood Count 11.8 K/mm3 (4.5-10.0)
[2025-08-14 08:44] LABS: Alanine Aminotransferase 36 U/L (6-35); Albumin Level 3.5 g/dL (3.5-5.1); Alkaline Phosphatase 66 U/L (38-126); Anion Gap 7 mmol/L (4-12); Aspartate Amino Transferase 37 U/L (14-36); Bilirubin,Total 1.1 mg/dL (0.2-1.3); Blood Urea Nitrogen 18 mg/dL (7-17); Calcium 8.4 mg/dL (8.4-10.2); Carbon Dioxide 24 mmol/L (22-30); Chloride 105 mmol/L (98-107); Estimated CRCL calculation 123 ml/min; Estimated Glomerular Filt Rate > 60; Glucose 105 mg/dL (65-110); Potassium 3.7 mmol/L (3.4-5.0); Sodium 136 mmol/L (137-145); Total Protein 6.3 g/dL (6.3-8.2)
--- NOTE | 2025-08-14 14:46 | WPCEDHO ---
ED Hand Off Checklist All vitals saved: Yes IV Site documented: Yes All med administrations documented: Yes Triage Note Triage Note PATIENT STATES WAS DIAGNOSED WITH 08/13/25 21:19 STREP YESTERDAY. STATES IS NOW VOMITING WITH CHILLS. PATIENT STATES SHE IS UNABLE TO TAKE HER ANTIBIOTICS. C/O GAS PAINS IN HER STOMACH. REPORTS IS LIGHTHEADED AND DIZZY. Allergies No Known Allergies Allergy (Verified 08/13/25 21:27) Current Diagnoses Sepsis, unspecified organism (08/14/25) Urinary tract infection, site not specified (08/14/25) Family History (Last Reviewed 08/14/25 @ 01:56 by Mikayla Mcnulty, OLAG) Grandparent Hypertension Grandparent Depression Cancer Anxiety Active Medications including assessments/comments Acetaminophen (Acetaminophen 325 Mg Tablet) 650 mg PO Q4H PRN PRN Reason: Mild Pain (1-3) or Fever Last Admin: 08/14/25 12:52 Dose: 650 mg Documented By: EARLE [facility] Pain/Fever Assessment Document 08/14/25 12:52 EARLE (Rec: 08/14/25 12:53 EARLE [id number]) Administration Reason Administration Pain Reason Pain Pain Evaluation Assessment Pain Scale Used Numeric (1 - 10) Order Parameters Order Parameters for Pain Level 7-10 (Severe) Administering this Pain Med Self Report Pain Assessment Reported Pain Level 7 Pain Location Head Pain Frequency Acute Pain Behaviors None Pain Score Pain Score 7: Self Report Re-Assess: [facility] Pain/Fever Reassessment Document 08/14/25 13:46 AJW (Rec: 08/14/25 13:47 AJW [id number]) Reason for Administratin Reason for Pain Administration Self Report Self Report Pain 0 Level Pain Score Pain Score 0: Self Report Admin: 08/14/25 01:37 Dose: 650 mg Documented By: HNK [facility] Pain/Fever Assessment Document 08/14/25 01:37 HNK (Rec: 08/14/25 01:37 HNK [id number]) Administration Reason Administration Pain Reason Pain Pain Scale Used Numeric (1 - 10) Order Parameters Order Parameters for Pain Level 4-6 (Moderate) Administering this Pain Med Self Report Pain Assessment Reported Pain Level 6 Pain Score Pain Score 6: Self Report Re-Assess: [facility] Pain/Fever Reassessment Document 08/14/25 02:37 HNK (Rec: 08/14/25 05:33 HNK [id number]) Pain Scale Pain Scale Used Numeric (1 - 10) Self Report Pain Assessment Reported Pain Level 2 Pain Score Pain Score 2: Self Report Lactated Ringer's (Lr - Lactated Ringers Iv) 1,000 mls @ 150 mls/hr IV CONT .Q6H40M SAMANTHA Last Admin: 08/14/25 09:20 Dose: 150 mls/hr Documented By: EARLE Infusion/Titration Document 08/14/25 09:20 EARLE (Rec: 08/14/25 09:20 EARLE [id number]) Intake IV Site Peripheral Access Right Antecubital Cumulative Intake ( 1,000 Rx) Container Volume 1,000 Waste Amount 0 Dosing Infusion Rate 150 Cumulative Dose Not Applicable Increase/Decrease Started/Running Elapsed Time Elapsed Time ( 6h 41m minutes) Infusion: 08/14/25 08:21 Dose: Infused Documented By: EARLE Infusion/Titration Document 08/14/25 08:21 EARLE (Rec: 08/14/25 09:20 EARLE [id number]) Intake IV Site Peripheral Access Right Antecubital Intake 1,000 Cumulative Intake ( 1,000 bag) Cumulative Intake ( 1,000 Rx) Container Volume 0 Waste Amount 0 Dosing Infusion Rate 150 Cumulative Dose Not Applicable Increase/Decrease Infused Elapsed Time Elapsed Time ( 6h 41m minutes) Admin: 08/14/25 01:40 Dose: 150 mls/hr Documented By: MELL Infusion/Titration Document 08/14/25 01:40 HNK (Rec: 08/14/25 01:40 HNK [id number]) Intake IV Site Peripheral Access Right Antecubital Container Volume 1,000 Waste Amount 0 Dosing Infusion Rate 150 Cumulative Dose Not Applicable Increase/Decrease Started Elapsed Time Elapsed Time ( 0m minutes) Ampicillin Sodium/Sulbactam (Sodium 3 gm/ Sodium Chloride) 100 mls @ 200 mls/hr IVPB Q6HR [facility] Last Infusion: 08/14/25 13:33 Dose: Infused Documented By: EARLE Infusion/Titration Document 08/14/25 13:33 EARLE (Rec: 08/14/25 13:34 EARLE [id number]) Intake Intake 100 Cumulative Intake ( 100 bag) Cumulative Intake ( 200 Rx) Container Volume 0 Waste Amount 0 Dosing Infusion Rate 0 Cumulative Dose 6 Increase/Decrease Infused Elapsed Time Elapsed Time ( 1h 14m minutes) Infusion: 08/14/25 13:24 Dose: 0 mls/hr Documented By: EARLE Infusion/Titration Document 08/14/25 13:24 EARLE (Rec: 08/14/25 13:25 EARLE [id number]) Intake IV Site Peripheral Access Right Antecubital Intake 0 Cumulative Intake ( 0 bag) Cumulative Intake ( 100 Rx) Container Volume 100 Waste Amount 0 Dosing Infusion Rate 0 Cumulative Dose 3 Increase/Decrease Paused Elapsed Time Elapsed Time ( 1h 14m minutes) Admin: 08/14/25 12:40 Dose: 200 mls/hr Documented By: EARLE Infusion/Titration Document 08/14/25 12:40 EARLE (Rec: 08/14/25 12:40 EARLE [id number]) Intake IV Site Peripheral Access Right Antecubital Cumulative Intake ( 100 Rx) Container Volume 100 Waste Amount 0 Dosing Infusion Rate 200 Cumulative Dose 3 Increase/Decrease Started/Running Elapsed Time Elapsed Time ( 30m minutes) Infusion: 08/14/25 06:00 Dose: Infused Documented By: MELL Infusion/Titration Document 08/14/25 06:00 HNK (Rec: 08/14/25 06:05 MELL [id number]) Intake Intake 100 Cumulative Intake ( 100 bag) Cumulative Intake ( 100 Rx) Container Volume 0 Waste Amount 0 Dosing Infusion Rate 0 Cumulative Dose 3 Increase/Decrease Infused Elapsed Time Elapsed Time ( 30m minutes) Admin: 08/14/25 05:30 Dose: 200 mls/hr Documented By: MELL Infusion/Titration Document 08/14/25 05:30 HNK (Rec: 08/14/25 05:31 HNFernando [id number]) Intake IV Site Peripheral Access Right Antecubital Container Volume 100 Waste Amount 0 Dosing Infusion Rate 200 Increase/Decrease Started Elapsed Time Elapsed Time ( 0m minutes) Ondansetron HCl (Ondansetron Inj 4 Mg/2 Ml Vial) 4 mg IV PUSH Q4H PRN PRN Reason: Nausea Last Admin: 08/14/25 07:54 Dose: 4 mg Documented By: EARLE Administered/Completed Medications Discontinued Medications Lactated Ringer's (Lr - Lactated Ringers Iv) 1,000 mls @ 999 mls/hr IV CONT .Q1H1M STA Stop: 08/13/25 22:41 Last Infusion: 08/13/25 23:33 Dose: Infused Documented By: Admin: 08/13/25 22:32 Dose: 999 mls/hr Documented By: JOHN Ampicillin Sodium/Sulbactam (Sodium 3 gm/ Sodium Chloride) 100 mls @ 200 mls/hr IVPB ONCE ONE Stop: 08/13/25 22:10 Last Infusion: 08/13/25 23:37 Dose: Infused Documented By: Admin: 08/13/25 23:07 Dose: 200 mls/hr Documented By: JASPER Lactated Ringer's (Lr - Lactated Ringers Iv) 1,000 mls @ 999 mls/hr IV CONT .Q1H1M STA Stop: 08/13/25 22:43 Last Infusion: 08/13/25 23:34 Dose: Infused Documented By: Admin: 08/13/25 22:33 Dose: 999 mls/hr Documented By: JOHN Ampicillin Sodium/Sulbactam (Sodium 3 gm/ Sodium Chloride) 100 mls @ 200 mls/hr IVPB ONCE ONE Stop: 08/14/25 05:21 Last Admin: 08/14/25 05:33 Dose: Not Given Documented By: MELL Non-Admin Reason: Order Discontinued Ketorolac Tromethamine (Ketorolac 15 Mg/Ml Vial (*Bkc)) 15 mg IV PUSH ONCE ONE Stop: 08/13/25 21:42 Last Admin: 08/13/25 22:25 Dose: 15 mg Documented By: JOHN Ondansetron HCl (Ondansetron Inj 4 Mg/2 Ml Vial) 4 mg IV PUSH ONCE STA Stop: 08/13/25 23:05 Last Admin: 08/13/25 23:08 Dose: 4 mg Documented By: JASPER Notes 08/14/25 07:59 Nurse Note by Jarocho Herrera Pt complains of Nausea. Initialized on 08/14/25 07:59 - END OF NOTE Interventions/Assessments IV / Saline Lock, Insert Start: 08/13/25 21:16 Freq: Status: Active Protocol: Document 08/13/25 22:32 JOHN (Rec: 08/13/25 22:33 JOHN [id number]) IV Assessment Peripheral Access Right Antecubital IV Catheter Access Initiated IV Insertion Date 08/13/25 IV Insertion Time 22:00 Catheter Gauge 18 Ultrasound Used for Yes Placement IV Site Assessment WNL IV Care and WNL,Dressing Applied, Dated, Timed, and Initialed Maintenance PA: Gastrointestinal Assessment Start: 08/13/25 22:09 Freq: Status: Active Protocol: Document 08/13/25 22:30 HNK (Rec: 08/14/25 04:04 HNK [id number]) GI Assessment Gastrointestinal Focused Assessment Parameters Gastrointestinal Diarrhea,Nausea,Vomiting Symptoms Description Soft,Non-Tender Pattern Diarrhea Flatus Present Gastrointestinal Pt reports frequent diarrhea stool, nausea and vomiting Additional Comments . Pt dx and treated for strep yesterday. Last Vital Signs Temperature 98.6 F 08/14/25 06:05 Pulse Rate 104 H 08/14/25 14:45 Respiratory Rate 18 08/14/25 14:45 Pulse Oximetry 100 08/14/25 14:45 Blood Pressure 132/61 08/14/25 14:45 Blood Pressure Mean 84 08/14/25 14:45 Oxygen Delivery Room Air 08/13/25 21:19 Weight 107.4 kg 08/13/25 21:19 Last Result - Abnormals Only WBC 11.8 K/mm3 (4.5-10.0) H 08/14/25 08:09 MPV 11.2 fl (7.4-10.4) H 08/14/25 08:09 Neut % (Auto) 92.2 % (45.5-73.1) H 08/14/25 08:09 Lymph % (Auto) 3.1 % (18.3-44.2) L 08/14/25 08:09 [place] % (Auto) 1.8 % (2.6-8.5) L 08/13/25 22:08 Lymph # (Auto) 0.37 K/mm3 (0.9-3.2) L 08/14/25 08:09 Abs Immat Gran (auto) 0.04 K/mm3 (0.00-0.031) H 08/14/25 08:09 Absolute Neuts (auto) 10.9 K/mm3 (1.3-6.7) H 08/14/25 08:09 Sodium 136 mmol/L (137-145) L 08/14/25 08:09 BUN 18 mg/dL (7-17) H 08/14/25 08:09 Lactic Acid 2.3 mmol/L (0.7-2.0) H 08/13/25 22:08 AST 37 U/L (14-36) H 08/14/25 08:09 ALT 36 U/L (6-35) H 08/14/25 08:09 Urine Appearance Cloudy (Clear) H 08/14/25 01:43 Urine Protein 1+ mg/dL (Negative) H 08/14/25 01:43 Urine Ketones Trace mg/dL (Negative) H 08/14/25 01:43 Ur Blood (Man) 3+ (Negative) H 08/14/25 01:43 Leukocyte Esterase Rfl 1+ NITIN/UL (Negative) H 08/14/25 01:43 Urine RBC >100 /hpf (0-2) H 08/14/25 01:43 Urine WBC 21-50 /hpf (0-3) H 08/14/25 01:43 Ur Transition Epith Cell Few /hpf (None Seen) H 08/14/25 01:43 Urine Bacteria 1+ /hpf H 08/14/25 01:43 Most Recent Suicide Severity Rating Suicide Severity Rating NO RISK INDICATED 08/13/25 21:19
--- NOTE | 2025-08-14 15:05 | ADMGEN ---
This patient, Cherry Ortega, was admitted to Medical Room 253-01. Patient/family oriented to hospital policies and general routines including ID bracelet, bed and alarms, visiting hours, pain management, procedures, bathroom and other care routines, personal items, smoking policy, room service/diet, and visiting hours. Information on how to activate the Rapid Response Team has been discussed. Patient/Family are encouraged to report perceived risks to care and to ask questions if they do not understand what they are told or what they should do.
[2025-08-14] MEDS: KETOROLAC 30 MG/ML VIAL (*BKC) IV PUSH (15:12)
--- NOTE | 2025-08-14 16:20 | P.DS_ITS ---
DS: Admitting Diagnosis Discharge Date 08/14/2025 Admitting Diagnosis Sepsis secondary to UTI/dehydration/nausea vomiting DS: Discharge Diagnosis Discharge Diagnosis (1) Sepsis: Code(s): A41.9 - Sepsis, unspecified organism Status: Acute (2) UTI (urinary tract infection): Code(s): N39.0 - Urinary tract infection, site not specified Status: Acute DS: Summary Hospital Course Reason for hospitalization: Sepsis secondary to UTI/dehydration/nausea vomiting Hospital Course: The patient presented with nausea, vomiting, sore throat, fever, chills, tachycardia, and hypotension after recent treatment for streptococcal pharyngitis. She was unable to tolerate oral penicillin. Initial evaluation demonstrated leukocytosis, elevated lactate, hypotension, and tachycardia concerning for sepsis. Hospital Course The patient met sepsis criteria on presentation with hypotension (90/58), tachy cardia (HR 143), leukocytosis (WBC 14.5), fever, and elevated lactate (2.3). She responded appropriately to intravenous fluid resuscitation with normalization of blood pressure and lactate (1.0). Broad-spectrum IV antibiotics with Unasyn were initiated after discussion with pharmacy, providing coverage for both suspected pharyngeal source and urinary tract infection. Urinalysis was notable for proteinuria, hematuria, pyuria, and bacteriuria, consistent with UTI. Blood and urine cultures were obtained and remained pending at the time of observation admission. Respiratory viral panel, COVID-19, influenza A/B, RSV, and repeat Group A strep testing were negative, likely influenced by prior antibiotic exposure. Chest X-ray showed no acute pulmonary process. Mild transaminitis was noted and attributed to known history of fatty liver. The patient?s nausea and pain improved with antiemetics and analgesia. Airway remained protected with no evidence of peritonsillar abscess. She remained hemodynamically stable after treatment. Patient leukocytosis and hypotension improved with IVF she was tolerated all oral intake with no further nauseaor vomiting. Patient was prescribed oral Augmentin to cover for UTI and any missed doses for strep. Patient was eager to return home and had no further fevers or complaints. Status at Discharge Functional status at discharge: independent ambulation Overall status at discharge: patient is back to baseline Time Spent with Patient Time attestation: Total time spent providing and/or coordinating discharge services: Time spent: Greater than 30 minutes Exam Const: General: cooperative, comfortable, no acute distress, well developed, awake, Physically active, average body habitus and well nourished Nutritional Appearance: average body habitus and well nourished Orientation/consciousness: oriented to person, oriented to place, oriented to time and patient oriented x3 Limitations: no limitations HENMT: Head: normal to inspection, No palpable skull fracture present, normocephalic, atraumatic and abrasion Ears: hearing grossly normal bilaterally Other: Tonsils enlarged 2+ with mild erythema. No pus pockets or abscesses located. Eyes: General: appearance normal, both eyes and all related structures Alignment and Position: alignment normal Periorbital: periorbital findings normal Eyelids: eyelids normal Pupils: Equal, round and reactive pupils present EOM: EOMs intact bilaterally Neck: Neck: normal visual inspection, full ROM and no lymphadenopathy Resp: Effort & Inspection: normal respiratory effort Percussion: percussion normal Cardio: Palpation: normal PMI Rhythm: regular rhythm Heart sounds: S1 normal heart sound present and S2 normal heart sound present Peripheral pulses: Peripheral pulses 2+ throughout GI: Inspection: normal to inspection Auscultation: normal bowel sounds Rectal Exam: deferred : General: Yes no CVA tenderness Back/Spine/Pelvis: Back: no CVA tenderness Cervical Spine: cervical ROM normal Skin: General skin exam: normal color Lesions: no lesions Rashes: no rashes Trauma: no lacerations or abrasions Wounds: no wounds Hair: normal Nails: normal Neuro: General: oriented to person, oriented to place, oriented to time and patient oriented x3 Cranial nerves: Yes Equal, round and reactive pupils present and Yes Normal hearing present Cognition (Neuro): normal cognition Speech: normal speech Gait exam (Neuro): Normal gait present Motor exam (neuro): 5/5 motor strength present throughout Sensory Exam: normal sensation Extrem: General: normal to inspection Right upper extremity: normal to inspection and shoulder/upper arm Left upper extremity: normal to inspection and shoulder/upper arm Right lower extremity: normal to inspection Left lower extremity: normal to inspection Psych: Appearance: grossly normal Mental Status: mental status grossly normal Speech and movement: Normal speech and movement present Affect: normal affect Attitude: cooperative Thought process: Normal thought process present Insight: Good insight present (Psych) Judgement: Good judgement present (Psych) DS: Data Data Completed and Pending Labs on day of discharge: Labs from last 24 hours 08/14/25 08/14/25 08/14/25 08:09 01:43 01:30 WBC 11.8 H RBC 4.54 Hgb 13.1 Hct 39.9 MCV 87.9 MCH 28.9 MCHC 32.8 RDW 12.9 Plt Count 211 MPV 11.2 H Immature Gran % (Auto) 0.3 Neut % (Auto) 92.2 H Lymph % (Auto) 3.1 L [place] % (Auto) 3.6 Eos % (Auto) 0.3 Baso % (Auto) 0.5 Lymph # (Auto) 0.37 L [place] # (Auto) 0.4 Eos # (Auto) 0.0 Baso # (Auto) 0.1 Abs Immat Gran (auto) 0.04 H Absolute Neuts (auto) 10.9 H Absolute Nucleated RBC 0.000 Nucleated RBC % 0.0 PT INR APTT Sodium 136 L Potassium 3.7 Chloride 105 Carbon Dioxide 24 Anion Gap 7 BUN 18 H Creatinine 0.73 Estim Creat Clear Calc 123 Estimated GFR > 60 Glucose 105 Lactic Acid 1.0 Calcium 8.4 Total Bilirubin 1.1 AST 37 H ALT 36 H Alkaline Phosphatase 66 C-Reactive Protein Total Protein 6.3 Albumin 3.5 Urine Color Yellow Urine Appearance Cloudy H Urine pH 5.5 Ur Specific [place] 1.028 Urine Protein 1+ H Urine Glucose (UA) Negative Urine Ketones Trace H Ur Blood (Man) 3+ H Urine Nitrate Negative Urine Bilirubin Negative Urine Urobilinogen 1.0 Leukocyte Esterase Rfl 1+ H Urine RBC >100 H Urine WBC 21-50 H Ur Squamous Epith Cells Moderate Ur Transition Epith Cell Few H Urine Bacteria 1+ H Urine Casts 11-20 Urine Test Negative Influenza A (RT-PCR) Negative Influenza B (RT-PCR) Negative RSV (RT-PCR) Negative SARS-CoV-2 RNA (RT-PCR) Negative Group A Strep (PCR) Not detected 08/13/25 22:08 WBC 14.5 H RBC 5.15 Hgb 14.7 Hct 44.2 MCV 85.8 MCH 28.5 MCHC 33.3 RDW 12.5 Plt Count 273 MPV 11.0 H Immature Gran % (Auto) 0.5 Neut % (Auto) 94.2 H Lymph % (Auto) 3.1 L [place] % (Auto) 1.8 L Eos % (Auto) 0.1 Baso % (Auto) 0.3 Lymph # (Auto) 0.45 L [place] # (Auto) 0.3 Eos # (Auto) 0.0 Baso # (Auto) 0.1 Abs Immat Gran (auto) 0.07 H Absolute Neuts (auto) 13.7 H Absolute Nucleated RBC 0.000 Nucleated RBC % 0.0 PT 14.2 INR 1.1 APTT 24.2 Sodium 139 Potassium 3.4 Chloride 105 Carbon Dioxide 22 Anion Gap 12 BUN 18 H Creatinine 0.79 Estim Creat Clear Calc 114 Estimated GFR > 60 Glucose 103 Lactic Acid 2.3 H Calcium 9.6 Total Bilirubin 0.8 AST 59 H ALT 42 H Alkaline Phosphatase 95 C-Reactive Protein < 0.5 Total Protein 7.9 Albumin 4.6 Urine Color Urine Appearance Urine pH Ur Specific [place] Urine Protein Urine Glucose (UA) Urine Ketones Ur Blood (Man) Urine Nitrate Urine Bilirubin Urine Urobilinogen Leukocyte Esterase Rfl Urine RBC Urine WBC Ur Squamous Epith Cells Ur Transition Epith Cell Urine Bacteria Urine Casts Urine Test Influenza A (RT-PCR) Influenza B (RT-PCR) RSV (RT-PCR) SARS-CoV-2 RNA (RT-PCR) Group A Strep (PCR) Discharge Plan Discharge Attending physician on discharge: Juan José Ruiz Consulting providers: Deya Macedo Discharging Clinician: Deya Macedo Anticipated Discharge Date/Time: 08/14/25 16:15 Patient Disposition: Home Activity: as tolerated Diet: regular Discharge Instructions: 1). UTI/Strep * I have prescribed Augmentin to cover for urinary tract infection as well as any missed doses for your strep throat * I have also prescribed sublingual Zofran as needed for nausea vomiting * Encourage oral hydration * Ibuprofen for sore throat * Acetaminophen for mild fever body aches How can you care for yourself at home? ? Keep track of any new symptoms or changes in your symptoms. ? Rest until you feel better. ? Be safe with medicines. Take your medicines exactly as prescribed. Call your doctor if you think you are having a problem with your medicine. ? Do not drive after taking a prescription pain medicine. ? Ensure to follow-up with primary care physician as indicated and provide updated medication list provided to you at discharge. When should you call for help? Call 911 anytime you think you may need emergency care. For example, call if: ? You passed out (lost consciousness). Call your doctor now or seek immediate medical care if: ? You have new symptoms like fever, difficulty breathing, Chest pain, vomiting, or rash. ? You have new or different pain. ? You are confused and are having trouble thinking clearly. ? Your symptoms are getting worse. Watch closely for changes in your health, and be sure to contact your doctor if: ? You do not get better as expected. Patient Instructions: Antibiotic Form, Urinary Tract Infection in Women (DC), Strep Throat (DC) Patient Language: Wolof Stand Alone Forms: General Discharge Information Follow-up/Referrals: Alie Yeung APRN [Primary Care Provider, [facility]] - Call for Appointment Discharge Medications: New ondansetron 8 mg tablet,disintegrating 8 mg PO Q8H PRN (Reason: nausea and vomiting) Qty: 30 0RF amoxicillin-pot clavulanate 875-125 mg tablet 1 tablet PO Q12H Qty: 8 0RF Continued Nexplanon 68 mg implant 1 implant subdermal ONCE Qty: 1 0RF Rx Instructions: as a single dose trazodone 50 mg tablet 50 mg PO QHS PRN (Reason: sleep) Rx Instructions: TAKE 1 TABLET BY MOUTH EVERY DAY AT BEDTIME NEEDED FOR INSOMNIA Held tirzepatide 4.4 mg subcut WEEKLY Hold Instructions: Resume on 08/17/25. Hold until oral intake improves Date of admission: 08/14/25 11:26 Primary Care Provider: Alie Yeung Admitting Provider: Cecille Watkins Attending physician on admission: Cecille Watkins Condition: Stable Quality VTE Prophylaxis VTE prophylaxis: mechanical ordered - Patient's previous records reviewed on admission -ER notes reviewed in detail on admission -discussed all findings and current treatment plan with patient/Family/POA -Consultations reviewed for recommendations -Patient's disposition for safe discharge discussed with outpatient case manager -radiology imaging, EKG and test results I have personally reviewed and interpreted unless otherwise specified Dictation performed by [employer] direct speech recognition software, therefore public services assistant variants and typographical errors may occur. Hospitalist MIPS Heart Failure (Exclusion) Patient has history of Heart Transplant or Left Ventricular Assistive Device?: No IF YES, STOP HERE Heart Failure (Qualifier) Patient has current or prior documentation of LVEF less than or equal to 40%, or mod/servere depressed LVSF?: No IF NO, STOP HERE
== END 2025-08-14 16:50 | disposition home or self-care (01) | DRG 872 ==
LOC: ANHED 22:34 → ANHIMU 23:45 → ANH2MED 08-14 16:17 → ANHIMU 08-19 09:29
PROVIDERS: Nurse Practitioner; Admitting Provider General Practice; Emergency Provider Student in an Organized Health Care Education/Training Program; PCP Nurse Practitioner Adult Health; Visit Provider Nurse Practitioner Family
DX: A41.9 Sepsis, unspecified organism (principal); N39.0 Urinary tract infection, site not specified; J02.0 Streptococcal pharyngitis; E86.0 Dehydration; E66.01 Morbid (severe) obesity due to excess calories; K76.0 Fatty (change of) liver, not elsewhere classified; K21.9 Gastro-esophageal reflux disease without esophagitis; Z20.822 Contact with and (suspected) exposure to COVID-19
CPT/HCPCS: 36415; 71045; 80053; 81001; 81025; 83605; 85025; 85610; 85730; 86140; 87040; 87086; 87637; 87651; 93005; 96365; 96375; 99285; A9270; G0378; J0295; J1885; J2405; J7120